=== PATIENT | female | born 1965 | race Caucasian/White ===

== ENCOUNTER 2017-03-10 13:32 | Outpatient (CLI) | payer MEDICARE ==
--- NOTE | 2017-03-10 16:02 | RAD ---
CERVICAL SPINE: History: Cervical disc degeneration. Post op follow up. FINDINGS: Anterior fusion procedure noted. Anterior plate and screws transfix C5-6. Interbody implant is noted . There is mild wedging of the C6 vertebra. Posterior alignment is preserved. Plate and screws appea r adequate in position. IMPRESSION: Anterior fusion changes at C5-6. POS: [facility]
== END 2017-03-10 13:33 | disposition home or self-care (01) ==
LOC: TBSIIMAG 13:32
PROVIDERS: ATTEND Neurological Surgery
DX: M50.30 Other cervical disc degeneration, unspecified cervical region (principal); Z98.1 Arthrodesis status
CPT/HCPCS: 72040

== ENCOUNTER 2017-03-17 11:44 | Outpatient (CLI) | payer MEDICARE, MEDICAID ==
--- NOTE | 2017-03-17 16:43 | CT ---
CT THORAX NONCONTRAST: 03/17/2017 HISTORY: A 51-year-old female, follow-up right upper lobe lung nodule. COMPARISON: CT pulmonary angiogram of 01/22/2017. FINDINGS: Again noted is the solid, noncalcified nodule in the apical segment of the right upper lobe. Its ma rgins are irregular, but not spiculated. The peripheral superior aspect of this is hazy, with small ground-glass appearance. Because of indistinct boundaries, precise measurements are difficult to o btain, but it is approximately 15 x 10 x 15 mm. There are no other suspicious pulmonary nodules. N o airspace opacity, pulmonary edema, pleural effusion, or pneumothorax. No thoracic aortic aneurysm or cardiomegaly. Minimally prominent pretracheal lymph node at the level of the torres is unchange d. There is no destructive osseous lesion. The trachea and bronchi are patent and clear. There is no interval change overall. IMPRESSION: 1. No interval change in the approximately 15 mm pulmonary nodule in the apical segment of the right upper lobe, since approximately 1.5 months ago. 2. Primary lung cancer is a possibility. 3. Recommend PET scan. GREG Brandt POS: [facility]
--- NOTE | 2017-03-17 17:40 | CT ---
CT ABDOMEN WITH AND WITHOUT IV CONTRAST: 03/17/17 HISTORY: Liver hemangioma. FINDINGS: The patient is post cholecystectomy. No free air, free fluid or lymphadenopathy seen in the abdomen. The spleen, pancreas, right adrenal gland and kidneys appears normal. No calculi is seen in the kid neys or visualized portions of the ureters. No hydroureteronephrosis is noted. There is a 2 cm lesion in the dome of the liver which demonstrates peripheral nodular enhancement an d centripetal filling on subsequent imaging. This is consistent with a liver hemangioma. There is a 2 cm left adrenal nodule with attenuation values less than 10 Hounsfield units on the non contrasted images, consistent with a benign adenoma. There are vascular calcifications without evidence of aneurysmal dilatation of the abdominal aorta. No acute osseous abnormalities are seen. IMPRESSION: 1. Liver hemangioma. 2. Left adrenal adenoma. POS: [facility]
--- OUTSIDE RECORDS SUMMARY | 2017-03-18 19:27 | XMS | Clinical Summary ---
:1965 Author Organization [facility] Address [address] [place] [address] Phone Care Team Providers Name Role Phone , Primary Care Provider Unavailable Allergies Not on File Current Medications Not on file Active Problems Not on file Social History Tobacco Use Types Packs/Day Years Used Date Never Assessed Sex Assigned at Date Recorded Not on file Last Filed Vital Signs Not on file Plan of Treatment Not on file Results Not on filefrom Last 3 Months
== END 2017-03-17 11:45 | disposition home or self-care (01) ==
LOC: CT 11:44
PROVIDERS: ATTEND Internal Medicine
DX: D18.03 Hemangioma of intra-abdominal structures (principal); R91.1 Solitary pulmonary nodule; D35.02 Benign neoplasm of left adrenal gland
CPT/HCPCS: 71250; 74170

== ENCOUNTER 2017-03-23 11:35 | Outpatient (CLI) | payer MEDICARE, MEDICAID ==
--- NOTE | 2017-03-24 16:09 | PET ---
PET CT: 03/24/17 HISTORY: Pulmonary lung nodule. COMPARISON: 03/17/[address] RADIOPHARMACEUTICAL: 12.25 millicuries F18 FDG IV. FINDINGS: There is abnormal biodistribution of radiotracer with diffuse uptake throughout the musculature of t he imaged extremities as well as the body wall which precludes reliable evaluation for potential are as of hypermetabolic activity. Patient's known right apical pulmonary nodule is redemonstrated. There is activity present at this r egion with an SUV of less than 1, although this cannot be relied upon as an accurate degree of metab olic activity given the diffuse muscular uptake. There is also limitation for evaluation of potentia l sites of additional hypermetabolic uptake of the neck, chest, abdomen and pelvis. Subtle hypodensi ty at the hepatic dome related to patient's previously diagnosed hepatic hemangioma. Redemonstration of a left adrenal adenoma. Scattered vascular calcification present. There are cholecystectomy clip s seen. IMPRESSION: Nondiagnostic PET CT due to diffuse abnormal uptake of radiotracer within the regional musculature. SUV of less than 1 is obtained at the patient's known right apical pulmonary nodule, although this S UV cannot be relied upon as accurate due to the above described limitations. Recommend continued priti ging surveillance, which may be performed in a followup CT thorax in three to four months. POS: [facility]
== END 2017-03-23 11:36 | disposition home or self-care (01) ==
LOC: PET 11:35
PROVIDERS: ATTEND Internal Medicine Critical Care Medicine
DX: R91.1 Solitary pulmonary nodule (principal)
CPT/HCPCS: 78815; A9552

== ENCOUNTER 2017-08-12 08:48 | Outpatient (CLI) | payer MEDICARE, MEDICAID | END 2017-08-12 08:49 | disposition home or self-care (01) | LOC: BICCT 08:48 | PROVIDERS: ATTEND Internal Medicine Critical Care Medicine | DX: R91.1 Solitary pulmonary nodule (principal); R91.8 Other nonspecific abnormal finding of lung field; E27.8 Other specified disorders of adrenal gland | CPT/HCPCS: 71250 ==

== ENCOUNTER 2017-08-19 13:45 | Emergency (ER) | payer MEDICARE, OTHER ==
[~2017-08-19 13:45] MED LIST: ISOVUE-370 76%-LOCM 1 ML ONE
[2017-08-19] MEDS ORDERED: Ondansetron HCl/PF 4 MG/2 ML Vial ONE (14:54)
[2017-08-19] MEDS ORDERED: Famotidine/PF 20 mg/2ml Vial ONE (14:55)
[2017-08-19 14:56] LABS: #Basophils 0.1 thou/uL (0.0-0.2); #Eosinphils 0.3 thou/uL (0.0-0.7); #Monocytes 0.5 thou/uL (0.11-0.59); #Neutrophils 7.4 thou/uL (1.40-6.50); %Basophils 0.6 % (0.0-1.0); %Eosinophils 2.4 % (0.0-10.0); %Lymphocytes 26.5 % (21.0-51.0); %Monocytes 4.3 % (0.0-10.0); %Neutrophils 66.3 % (42.0-75.0); Hemoglobin 16.2 g/dL (12.0-16.0); Mean Corpuscular HGB CONC 33.6 g/dL (32.0-36.0); Mean Corpuscular Hemoglobin 31.3 pg (27.0-31.0); Mean Corpuscular Volume 93.4 fl (81.0-99.0); Mean Platelet Volume 7.5 fL (7.4-10.4); Platelet Count 272 thou/uL (130-400); RBC Distribution Width 13.4 % (11.5-14.5); Red Blood Cell (RBC) Count 5.17 mill/uL (4.20-5.40); White Blood Cell (WBC) Count 11.2 thou/uL (4.8-10.8)
--- NOTE | 2017-08-19 15:17 | CT ---
CT ABDOMEN AND PELVIS WITH IV CONTRAST: Date: 08/19/17 HISTORY: Nausea, diarrhea, dark bloody stool, and abdominal pain. FINDINGS: Comparison made with CT abdomen of 03/17/17. There are mild dependent changes in the lung bases. Hemangioma in the dome of the liver and 2.0 cm ad enoma in the left adrenal gland are stable. The spleen, pancreas, right adrenal gland, and kidneys ar e normal. No free air, free fluid, or lymphadenopathy noted in the abdomen or pelvis. The patient is post faisal cystectomy. There are vascular calcifications without evidence of aneurysmal dilatation of the abdomi nal aorta. The small bowel loops are not abnormally dilated. An abnormal appendix is not visualized. No pericolonic inflammatory changes are seen. There are mild degenerative changes in the lower lumbar spine. IMPRESSION: 1. Liver hemangioma. 2. Left adrenal adenoma. 3. No evidence of bowel obstruction or perforation. POS: [facility]
[2017-08-19 15:19] LABS: ALT (SGPT) 17 U/L (8-55); AST (SGOT) 17 U/L (5-34); Albumin 3.8 g/dL (3.5-5.0); Alkaline Phosphatase 138 U/L (40-150); Anion Gap 11 mmol/L (10-20); BUN (Urea Nitrogen) 16 mg/dL (9.8-20.1); Bilirubin, Total 0.2 mg/dL (0.2-1.2); Calc. Creatinine Clearance 0 mL/min (70-130); Carbon Dioxide 16 mmol/L (22-29); Chloride 111 mmol/L (98-107); Estimated GFR-MDRD 60; Globulin 2.9 g/dL (2.4-3.5); Glucose 136 mg/dL (70-105); Lipase 15 U/L (8-78); Potassium 3.3 mmol/L (3.5-5.1); Protein, Total 6.7 g/dL (6.0-8.3); Sodium 135 mmol/L (136-145)
[2017-08-19 15:38] LABS: Bilirubin Negative (Negative); Blood, Urine Negative (Negative); Clarity CLEAR (Clear); Glucose, Urine (Dipstick) Negative (Negative); Leukocyte Negative (Negative); Nitrite Negative (Negative); Protein, Urine (Dipstick) Negative (Neg-Trace); Specific Gravity, Urine 1.034 (1.002-1.036); Urobilinogen 0.2 mg/dL (0.2-1.0)
== END 2017-08-19 15:55 | disposition home or self-care (01) ==
LOC: ERS 13:45
DX: R11.2 Nausea with vomiting, unspecified (principal); R19.7 Diarrhea, unspecified; R10.9 Unspecified abdominal pain; K64.9 Unspecified hemorrhoids; E11.9 Type 2 diabetes mellitus without complications; G43.909 Migraine, unspecified, not intractable, without status migrainosus; E78.5 Hyperlipidemia, unspecified; I10 Essential (primary) hypertension; F41.9 Anxiety disorder, unspecified; F31.9 Bipolar disorder, unspecified; F17.210 Nicotine dependence, cigarettes, uncomplicated; Z86.73 Personal history of transient ischemic attack (TIA), and cerebral infarction without residual deficits
CPT/HCPCS: 74177; 80053; 81003; 82274; 83690; 85025; 96361; 96372; 96374; 96375; J2405; S0028

== ENCOUNTER 2017-11-29 14:30 | Outpatient (CLI) | payer MEDICARE, OTHER | END 2017-11-29 14:31 | disposition home or self-care (01) | LOC: BICMAMMO 14:30 | PROVIDERS: ATTEND Family Medicine | DX: Z12.31 Encounter for screening mammogram for malignant neoplasm of breast (principal) | CPT/HCPCS: 77063; 77067 ==

== ENCOUNTER 2017-12-02 09:08 | Outpatient (CLI) | payer MEDICARE, MEDICAID ==
--- NOTE | 2017-12-02 12:14 | RAD ---
BIPHASIC ESOPHAGRAM: HISTORY: Epigastric pain. FINDINGS: Swallowing is grossly normal. There is unobstructed flow of contrast through the esophagus into the stomach. Tertiary contractions are present. No obstructing mass, stricture, or diverticulum is seen . No GE reflux is demonstrated during the Valsalva maneuver. IMPRESSION: Presbyesophagus. POS: [facility]
== END 2017-12-02 09:09 | disposition home or self-care (01) ==
LOC: RAD 09:08
PROVIDERS: ATTEND Internal Medicine Gastroenterology
DX: R10.13 Epigastric pain (principal); K59.09 Other constipation; R07.9 Chest pain, unspecified; R91.1 Solitary pulmonary nodule; K22.8 Other specified diseases of esophagus
CPT/HCPCS: 74220

== ENCOUNTER 2017-12-07 13:02 | Outpatient (CLI) | payer MEDICARE, OTHER | END 2017-12-07 13:03 | disposition home or self-care (01) | LOC: BICMAMMO 13:02 | PROVIDERS: ATTEND Family Medicine | DX: N63.10 Unspecified lump in the right breast, unspecified quadrant (principal); N63.11 Unspecified lump in the right breast, upper outer quadrant | CPT/HCPCS: 76642; 77065; G0279 ==

== ENCOUNTER 2018-04-28 08:51 | Outpatient (CLI) | payer MEDICARE, MEDICAID ==
--- NOTE | 2018-04-28 10:37 | CT ---
NONCONTRAST ENHANCED CT CHEST: History: Follow up lung nodule. Technique: Noncontrast enhanced CT of the chest was performed. Date: 04-28-18 Comparison: 03-17-17 FINDINGS: Images demonstrate increasing right upper lobe lung parenchymal nodule. 3D measurements at this time measure 1.3 x 1.4 x 1.5 cm. Compared to previous measurement of 1.1 x 1.1 x 1.3 cm. This lesion appea rs to have more well circumscribed increasing density on the periphery compared to the previous exam. Overall size of the lesion has increased. It may be worthwhile to consider repeating the PET scan or consider repeat CT in 3 months to evaluate for interval change. The enlarged right upper lobe lesion is suspicious for possible malignancy. Left adrenal lesion is again seen and is stable. IMPRESSION: Lung RADS category 4B. POS: [facility]
== END 2018-04-28 08:52 | disposition home or self-care (01) ==
LOC: CT 08:51
PROVIDERS: ATTEND Internal Medicine Critical Care Medicine
DX: R91.1 Solitary pulmonary nodule (principal)
CPT/HCPCS: 71250

== ENCOUNTER 2018-09-06 14:47 | Outpatient (CLI) | payer MEDICARE, MEDICAID ==
--- NOTE | 2018-09-06 15:52 | MMO ---
Right Breast MAMMO Unilat Diag DDI RT+JULIA. CLINICAL HISTORY: Patient is 53 years old and is seen for diagnostic exam. The patient has no family history of breast cancer. The patient has no personal history of cancer. VIEWS: The views performed were: right craniocaudal with tomosynthesis; right mediolateral oblique with tomosynthesis; right mediolateral; and right exaggerated craniocaudal. FILMS COMPARED: The present examination has been compared to prior imaging studies performed at [facility] on 11/29/2017, 12/07/2017 and 09/06/2018. MAMMOGRAM FINDINGS: There are scattered fibroglandular densities. Finding 1: There are stable benign appearing calcifications seen in the right breast. Finding 2: There is a stable oval mass with circumscribed margins seen in the right breast at 9 o'clock. There are no suspicious masses, suspicious calcifications, or new areas of architectural distortion. IMPRESSION: THERE IS NO MAMMOGRAPHIC EVIDENCE OF MALIGNANCY. A ROUTINE FOLLOW-UP MAMMOGRAM IN 1 YEAR IS RECOMMENDED. THE RESULTS OF THIS EXAM WERE SENT TO THE PATIENT. ACR BI-RADS Category 2 - Benign finding MAMMOGRAPHY NOTE: 1. A negative mammogram report should not delay a biopsy if a dominant of clinically suspicious mass is present. 2. Approximately 10% to 15% of breast cancers are not detected by mammography. 3. Adenosis and dense breasts may obscure an underlying neoplasm.
--- NOTE | 2018-09-06 16:22 | ULT ---
RIGHT BREAST ULTRASOUND: 09/06/18 COMPARISON: None. HISTORY: Focal asymmetry in the outer aspect of the right breast at the 9 o'clock position from prior mammogra m and ultrasound. TECHNIQUE: Multiplanar loredo scale and color doppler images were obtained in a right breast ultrasound. FINDINGS: At the 9 o'clock position of the right breast approximately 6 cm from the nipple there is a 4 mm hyp oechoic region which may represent an intramammary lymph node. No suspicious shadowing is present. Th is is stable compared to prior examination. The lesion seen at the 10 o'clock position on the prior e xamination was not visualized on today's examination. IMPRESSION: BIRADS 2: Benign Finding(s) Routine annual screening mammography (for women over age 40). POS: [facility]
== END 2018-09-06 14:48 | disposition home or self-care (01) ==
LOC: BICMAMMO 14:47
PROVIDERS: ATTEND Family Medicine
DX: N63.10 Unspecified lump in the right breast, unspecified quadrant (principal)
CPT/HCPCS: 76642; 77065; G0279

== ENCOUNTER 2019-05-10 09:05 | Outpatient (CLI) | payer MEDICARE, MEDICAID ==
--- NOTE | 2019-05-10 13:18 | CT ---
CT THORAX WITHOUT IV CONTRAST: INDICATIONS: Follow up pulmonary nodule. COMPARISON: 03/17/2017 04/28/2018 FINDINGS: The single, partially solid nodule involving the right lung apex on image 22 of series 3 and image 38 of series 5 has intervally grown in size. The largest axial measurement seen was in the coronal plan e, measuring 19.65 mm x 16.32 mm, for an average axial 2D caliber measurement of 17.9 mm. Previously this nodule measured 14.9 x 13.35 mm with an average 2D caliber measurement of 14 mm. The partially s olid component seen within the central aspect of the nodule has increased in size, now measuring 8.9 x 8.1 mm with an average 2D caliber measurement of 8.53 mm. Small, subcentimeter nodules within the left upper lobe and right lower lobe are stable appearing. A small area of scarring within the left upper lobe on image 34 of series 3 is stable. Pleural parenchy mal scarring is stable appearing. There are coronary artery and thoracic aortic calcifications. There is a stable left adrenal adenoma. The gallbladder is surgically absent. There are areas of fatty inf iltration of the liver. There is scattered degenerative and osteoarthritic change. IMPRESSION: 1. Enlarging, partly solid nodule of the right lung apex. This is concerning for an enlarging invasiv e adenocarcinoma. The solid component within the central aspect of the lesion has increased in promin ence. Its position in the right lung apex would make percutaneous sampling very difficult. Recommend consideration for PET scan for further characterization. 2. Stable left adrenal adenoma. 3. Fatty infiltration of the liver. 4. Cholecystectomy. CODE T POS: [facility]
== END 2019-05-10 09:06 | disposition home or self-care (01) ==
LOC: BICCT 09:05
PROVIDERS: ATTEND Internal Medicine Critical Care Medicine
DX: R91.1 Solitary pulmonary nodule (principal); D35.02 Benign neoplasm of left adrenal gland; K76.0 Fatty (change of) liver, not elsewhere classified; Z90.49 Acquired absence of other specified parts of digestive tract
CPT/HCPCS: 71250

== ENCOUNTER 2019-09-13 09:14 | Outpatient (CLI) | payer MEDICARE, OTHER ==
--- NOTE | 2019-09-13 11:10 | MMO ---
Bilateral MAMMO Bilat Screen DDI+JULIA. CLINICAL HISTORY: Patient is 54 years old and is seen for screening. The patient has no family history of breast cancer. The patient has no personal history of cancer. VIEWS: The views performed were: bilateral craniocaudal with tomosynthesis and bilateral mediolateral oblique with tomosynthesis. FILMS COMPARED: The present examination has been compared to prior imaging studies performed at [facility] on 11/29/2017, 12/07/2017 and 09/06/2018. This study has been interpreted with the assistance of computer-aided detection. MAMMOGRAM FINDINGS: There are scattered fibroglandular densities. Finding 1: There are stable benign appearing calcifications seen in both breasts. Finding 2: There are stable masses with circumscribed margins seen in both breasts. Finding 3: There is a new round mass measuring 6 millimeters with circumscribed margins seen in the sub-areolar region of the left breast. IMPRESSION: FINDING 1: STABLE CALCIFICATIONS IN BOTH BREASTS ARE BENIGN. FINDING 2: STABLE MASSES IN BOTH BREASTS ARE BENIGN. FINDING 3: NEW MASS IN THE LEFT BREAST REQUIRES ADDITIONAL EVALUATION. AN ULTRASOUND EXAM IS RECOMMENDED. THE RESULTS OF THIS EXAM WERE SENT TO THE PATIENT. ACR BI-RADS Category 0 - Incomplete: Need additional imaging evaluation. [facility] will notify the patient of the need for additional imaging services. MAMMOGRAPHY NOTE: 1. A negative mammogram report should not delay a biopsy if a dominant of clinically suspicious mass is present. 2. Approximately 10% to 15% of breast cancers are not detected by mammography. 3. Adenosis and dense breasts may obscure an underlying neoplasm. Reported by: JOSUE TOLLIVER MD Electonically Signed: [id number]
== END 2019-09-13 09:15 | disposition home or self-care (01) ==
LOC: BICMAMMO 09:14
PROVIDERS: ATTEND Family Medicine
DX: Z12.31 Encounter for screening mammogram for malignant neoplasm of breast (principal); N63.10 Unspecified lump in the right breast, unspecified quadrant; N63.42 Unspecified lump in left breast, subareolar; R92.1 Mammographic calcification found on diagnostic imaging of breast
CPT/HCPCS: 77063; 77067

== ENCOUNTER 2019-09-19 13:04 | Outpatient (CLI) | payer MEDICARE, OTHER ==
--- NOTE | 2019-09-19 13:58 | ULT ---
LEFT BREAST ULTRASOUND: 09/19/19 HISTORY: Abnormal mammogram of 09/13/19. FINDINGS: Correlation is made with the mammograms of 09/13/19. Sonographic evaluation of the subareolar region of the left breast demonstrates dilated ducts with de bris measuring up to 4 mm. IMPRESSION: BIRADS 0: Incomplete: Need Additional Imaging Evaluation and/or Prior Mammograms for Comparison. Fur ther evaluation with bilateral breast MRI (with and without IV contrast).
== END 2019-09-19 13:05 | disposition home or self-care (01) ==
LOC: BICULT 13:04
PROVIDERS: ATTEND Family Medicine
DX: N63.20 Unspecified lump in the left breast, unspecified quadrant (principal)

== ENCOUNTER 2019-09-25 14:46 | Outpatient (CLI) | payer MEDICARE, OTHER ==
--- NOTE | 2019-09-25 17:47 | MRI ---
MRI OF THE BREASTS WITH AND WITHOUT CONTRAST: Comparison: Mammogram 09-13-2019; ultrasound 09-19-2019 History: Abnormality seen in the left breast on prior ultrasound. Technique: Multiplanar, multisequence MR images were obtained of the bilateral breasts without and wi th IV contrast. FINDINGS: Scattered fibroglandular breast tissue is seen. Minimal background parenchymal enhancement is seen. T here is a nonenhancing lesion demonstrating slight high T1 signal in the anterior aspect of the left breast measuring 5 mm in size. This corresponds to mammographic and ultrasound abnormality. No suspic ious enhancement is seen within either breast. No suspicious mass is seen in either breast. No axillary adenopathy. No internal mamillary lymph nodes are identified. IMPRESSION: There is a nonenhancing nodular lesion in the anterior aspect of the left breast. This likely represe nts an area of duct ectasia with focal truncation of the area of dilatation producing a rounded mass- like appearance. No suspicious mass is seen in either breast. BIRADS category 2 - benign findings. An nual screening mammography is recommended. POS: [facility]
== END 2019-09-25 14:47 | disposition home or self-care (01) ==
LOC: BICMRI 14:46
PROVIDERS: ATTEND Family Medicine
DX: N63.20 Unspecified lump in the left breast, unspecified quadrant (principal); N64.9 Disorder of breast, unspecified
CPT/HCPCS: 82565; C8908; A9577

== ENCOUNTER 2019-10-02 10:06 | Outpatient (CLI) | payer MEDICARE, OTHER ==
--- NOTE | 2019-10-02 11:23 | CT ---
CT CHEST WITHOUT CONTRAST CLINICAL INDICATION: Follow-up pulmonary nodule COMPARISON: Studies on 05/10/2019 and 04/28/2018 FINDINGS: Aorta: Normal in caliber. Likely changes contrast limits evaluation of the abdominal aorta. Lungs: Previously seen right apical pulmonary nodule is again identified and measures 2 cm cranial ca udal x1.4 cm AP x1.5 cm transverse with previous measurement of 2 cm craniocaudal x1.5 cm AP x1.5 cm transverse. This nodule has more of a solid appearance on the current examination. The irregular p ulmonary nodule medial aspect left upper lobe is again seen previously measuring approximately 9 mm with obtained measurement on today's examination of 8 mm and is not significantly changed in size. Ti ny 2 to 3 mm pulmonary nodules are also again seen in the left upper lobe which are unchanged in size. No additional discrete pulmonary nodule or mass is seen. Biapical pleural and parenchymal scarring is again seen. A few minimal nonspecific scattered groundglass densities are noted which could be attributable to volume loss. No pleural effusion is seen. Mediastinum: Lack of intravenous contrast limits evaluation, but no enlarged mediastinal lymph nodes are appreciated on this study. Vascular calcifications are seen in the coronary arteries. Thyroid gland: Grossly normal nonenhanced CT appearance Osseous structures: No suspicious lytic or sclerotic osseous lesions are identified. Postoperative ch anges lower cervical spine are partially visualized. Chest wall: No abnormality is visualized. Upper abdomen: Liver demonstrates diminished attenuation likely attributable to diffuse fatty infiltr ation. Postcholecystectomy changes are again seen. Left adrenal nodule is again seen stable in size and demonstrating attenuation coefficient again most compatible with an adrenal adenoma. IMPRESSION: 1. Right apical pulmonary nodule. This nodule has a more overall solid appearance on today's exam. Fi ndings are again worrisome for malignancy. 2. Subcentimeter stable left upper lobe pulmonary nodules. 3. Stable left adrenal adenoma. 4. Fatty infiltration liver. 5. Cholecystectomy.
== END 2019-10-02 10:07 | disposition home or self-care (01) ==
LOC: BICCT 10:06
PROVIDERS: ATTEND Internal Medicine Critical Care Medicine
DX: R91.8 Other nonspecific abnormal finding of lung field (principal); K76.0 Fatty (change of) liver, not elsewhere classified; D35.02 Benign neoplasm of left adrenal gland; Z90.49 Acquired absence of other specified parts of digestive tract
CPT/HCPCS: 71250

== ENCOUNTER 2019-10-13 08:51 | Outpatient (CLI) | payer MEDICARE, MEDICAID ==
--- NOTE | 2019-10-13 12:00 | PET ---
Nuclear medicine FDG PET/CT: (Positron emission tomography and computed tomography) DATE: 10/13/2019 HISTORY: 54-year-old female with pulmonary nodule ICD-10: R 91.1 COMPARISON: 03/23/2017 TECHNIQUE: IV injection of F-18 fluorodeoxyglucose (FDG) dose: 11.3 mCi. PET scan and attenuation correction CT performed from skull base to proximal thighs. FINDINGS: SUV (standard uptake values) numbers given are maximum SUVs. QCLR used. There is increased FDG uptake throughout soft tissues of entire body, suggesting poor serum glucose c ontrol, making this a somewhat suboptimal study, although not as bad as the previous PET scan. The noncalcified pulmonary nodule in the apical segment of the right upper lobe was given dimensions of 2 x 1.4 x 1.5 cm on the chest CT report of 10/02/2019. It has grown since 03/23/2017, when it was approximately 1 x 0.7 cm. The current SUV is 1.5. There are mild diffuse hazy nonspecific groundglass changes in the bilateral mid and lower lung zones , similar to the attenuation correction CT images of the previous PET of 03/23/2017. On the 03/23/[address] images of that prior PET scan, there was asymmetrically g reater right-sided breast tissue than the left. This right-sided breast tissue has become larger in volume. Difficult to obtain measurements because of very irregular shape. It has SUV of 2.2 currently . There is a new finding of diffusely heterogeneously increased FDG uptake throughout the liver, with S UV up to 2.5. The attenuation correction CT demonstrates hepatomegaly and fatty liver. Cholecystectomy clips. The left adrenal adenoma is unchanged since 03/23/2017, with SUV of 1.4. There is patchy diffusely significantly increased uptake scattered throughout bowel, especially colon . No FDG avid enlarged lymphadenopathy of the identified in neck, chest, abdomen, or pelvis. IMPRESSION: 1) although the right apical upper lobe pulmonary nodule is not FDG avid, it is still possible that t his could be a low-grade primary pulmonary adenocarcinoma, based on its appearance. 2) hepatomegaly and hepatic steatosis. 3) diffusely heterogeneously patchy regions of increased uptake scattered throughout the liver. This may be due to heterogeneous fatty infiltration. However, a multiphase CT of abdomen with and without contrast, hepatic mass protocol is still recommended to rule out the somewhat low possibility of diffuse hepatic metastatic disease. If there is contraindication to iodinated contrast, MRI of the liver with and without contrast is recommended. 4) nonspecific mildly increased uptake in the right breast. Recommend following the recommendation on the report of the most recent mammogram. 5) benign left adrenal adenoma.
== END 2019-10-13 08:52 | disposition home or self-care (01) ==
LOC: PET 08:51
PROVIDERS: ATTEND Internal Medicine Critical Care Medicine
DX: R91.1 Solitary pulmonary nodule (principal); R94.8 Abnormal results of function studies of other organs and systems; D35.02 Benign neoplasm of left adrenal gland; K76.0 Fatty (change of) liver, not elsewhere classified
CPT/HCPCS: 78815; A9552

== ENCOUNTER 2019-10-31 08:27 | Day surgery (SDC) | payer MEDICARE, MEDICAID ==
[2019-10-30 14:38] VITALS: BMI 32.9
[2019-10-31 08:59] LABS: #Basophils 0.1 thou/uL (0.0-0.2); #Eosinphils 0.3 thou/uL (0.0-0.7); #Lymphocytes 3.7 thou/uL (1.20-3.40); #Monocytes 0.9 thou/uL (0.11-0.59); #Neutrophils 4.7 thou/uL (1.40-6.50); %Basophils 0.6 % (0.0-1.0); %Eosinophils 3.4 % (0.0-10.0); %Monocytes 9.6 % (0.0-10.0); %Neutrophils 48.3 % (42.0-75.0); Hemoglobin 14.4 g/dL (12.0-16.0); INR-International Normal Ratio 0.9; Mean Corpuscular HGB CONC 31.6 g/dL (32.0-36.0); Mean Corpuscular Hemoglobin 29.8 pg (27.0-31.0); Mean Platelet Volume 8.4 fL (7.4-10.4); PTT 32.5 sec (22.9-36.1); Platelet Count 278 thou/uL (130-400); RBC Distribution Width 13.5 % (11.5-14.5); Red Blood Cell (RBC) Count 4.85 mill/uL (4.20-5.40); White Blood Cell (WBC) Count 9.6 thou/uL (4.8-10.8)
[2019-10-31 09:34] VITALS: BP 121/80; TEMP 96.5
[2019-10-31] MEDS ORDERED: Benzonatate 100 MG CAP ONE (09:35)
[2019-10-31] MEDS ORDERED: Sodium Bicarbonate 2.5 MEQ/5 ML VIAL ONE (09:35)
[2019-10-31] MEDS ORDERED: Midazolam HCl 2 mg/2 ml Vial ONE (09:36)
[2019-10-31] MEDS ORDERED: Fentanyl 100 MCG/2 ML VIAL ONE (09:36)
[2019-10-31] MEDS ORDERED: HYDROcodone/Acetaminophen 5/325 mg Tablet ONE ×2 (11:46→13:54)
--- NOTE | 2019-10-31 11:57 | RAD ---
Chest 2 views and spectral expiratory HISTORY: Right lung mass with biopsy FINDINGS: Cardiac silhouette and pulmonary vasculature are unremarkable. Mediastinum is midline. Post operative changes cervical spine. Subtle mass at the lateral aspect of the right apex as visualized. Tiny amount of pleural gas just ab ove the level of the mass, at the right apex. Old left rib fractures. IMPRESSION : Tiny right apical post biopsy pneumothorax. Patient will be monitored in holding area and follow-up e xam performed.
[2019-10-31] MEDS ORDERED: Acetaminophen 500 MG TAB ONE (13:54)
--- NOTE | 2019-10-31 14:19 | CT ---
CT-guided biopsy right lung mass Conscious sedation: At least 1 hour spent with the patient for conscious sedation HISTORY: Right lung mass. FINDINGS: After explaining the procedure and answering all questions, limited CT imaging of the chest was performed. Sterile technique, buffered local anesthesia, CT guidance, conscious sedation, and an anterior approach were used to carefully advance a 19-gauge trocar needle into the spiculated mass at the right lung apex. Position was confirmed with CT. A total of 4 20-gauge core biopsy specimens were obtained and eventua lly submitted to pathology for evaluation. Needle was removed. No evidence of pneumothorax at this time. Patient tolerated the procedure well and was transferred to [facility] area in good condition for further monitoring. Patient did experience some discomfort of the right shoulder and back over the next 2 hours that impr [place] significantly after pain medication and eating. Limited CT imaging of the upper chest was performed at 1341 hours, revealing minimal residual pneumothorax and no evidence of complication. Pat ient will be discharged. IMPRESSION : Technically successful CT-guided biopsy right upper lobe lung mass. Pathology is pending.
--- NOTE | 2019-10-31 16:04 | RAD ---
INSPIRATORY AND EXPIRATORY VIEWS OF THE CHEST: 10/31/19 INDICATIONS: Status post right lung biopsy. COMPARISON: Prior inspiratory/expiratory views of the chest dated 10/31/19 at 11:14 a.m. IMPRESSION: Small right apical pneumothorax is slightly larger. The remainder of the examination is stable appear ing. COMMENTS: Left lung is clear. Heart size is normal appearing. There is an ACDF plate involving the lower cervic al spine. Thoracolumbar scoliosis is similar appearing. POS: [facility]
--- NOTE | 2019-11-01 15:05 | CT ---
CT-guided biopsy right lung mass Conscious sedation: At least 1 hour spent with the patient for conscious sedation HISTORY: Right lung mass. FINDINGS: After explaining the procedure and answering all questions, limited CT imaging of the chest was performed. Sterile technique, buffered local anesthesia, CT guidance, conscious sedation, and an anterior approach were used to carefully advance a 19-gauge trocar needle into the spiculated mass at the right lung apex. Position was confirmed with CT. A total of 4 20-gauge core biopsy specimens were obtained and eventua lly submitted to pathology for evaluation. Needle was removed. No evidence of pneumothorax at this time. Patient tolerated the procedure well and was transferred to [facility] area in good condition for further monitoring. Patient did experience some discomfort of the right shoulder and back over the next 2 hours that impr [place] significantly after pain medication and eating. Limited CT imaging of the upper chest was performed at 1341 hours, revealing minimal residual pneumothorax and no evidence of complication. Pat ient will be discharged. IMPRESSION : Technically successful CT-guided biopsy right upper lobe lung mass. Pathology is pending. Transcribed Date/Time: 11/01/2019 3:04 PM
== END 2019-10-31 14:15 | disposition home or self-care (01) ==
LOC: RAD 08:27
PROVIDERS: ATTEND Internal Medicine Critical Care Medicine
PROC: 0BBC3ZX Excision of Right Upper Lung Lobe, Percutaneous Approach, Diagnostic (ICD-10-PCS; principal; 2019-10-31)
DX: C34.11 Malignant neoplasm of upper lobe, right bronchus or lung (principal); I10 Essential (primary) hypertension; F41.9 Anxiety disorder, unspecified; F31.9 Bipolar disorder, unspecified; F17.200 Nicotine dependence, unspecified, uncomplicated; E78.5 Hyperlipidemia, unspecified; K21.9 Gastro-esophageal reflux disease without esophagitis; Z79.82 Long term (current) use of aspirin; Z79.83 Long term (current) use of bisphosphonates; Z79.84 Long term (current) use of oral hypoglycemic drugs; Z79.899 Other long term (current) drug therapy; Z88.0 Allergy status to penicillin; Z91.040 Latex allergy status
CPT/HCPCS: 32405; 36415; 71045; 77012; 85025; 85610; 85730; 88305; 88313; 88341; 88342; J2250; J3010

== ENCOUNTER 2019-11-15 12:29 | Observation (INO) | payer MEDICARE, OTHER ==
[2019-11-15 13:00] LABS: #Basophils 0.1 thou/uL (0.0-0.2); #Eosinphils 0.1 thou/uL (0.0-0.7); #Monocytes 0.6 thou/uL (0.11-0.59); #Neutrophils 6.1 thou/uL (1.40-6.50); %Basophils 0.8 % (0.0-1.0); %Lymphocytes 30.6 % (21.0-51.0); %Monocytes 5.8 % (0.0-10.0); %Neutrophils 61.7 % (42.0-75.0); Hemoglobin 15.3 g/dL (12.0-16.0); Mean Corpuscular Hemoglobin 30.4 pg (27.0-31.0); Mean Corpuscular Volume 92.3 fL (78.0-98.0); Mean Platelet Volume 7.9 fL (7.4-10.4); Platelet Count 320 thou/uL (130-400); RBC Distribution Width 12.6 % (11.5-14.5); Red Blood Cell (RBC) Count 5.03 mill/uL (4.20-5.40); White Blood Cell (WBC) Count 9.9 thou/uL (4.8-10.8)
--- NOTE | 2019-11-15 13:01 | CT ---
CT BRAIN WITHOUT CONTRAST: HISTORY: Left-sided weakness and blurred vision on the left side. Level 1 stroke. Altered mental stat us COMPARISON: 12/21/2013 FINDINGS: No evidence of acute infarct, hemorrhage, midline shift or abnormal extra-axial fluid collections is seen. The ventricular size is appropriate and the basilar cisterns are patent. The bony calvarium is intact. The visualized paranasal sinuses and mastoid air cells are well aerated. IMPRESSION: No CT evidence of acute intracranial process. Discussed over the telephone with ER physician Dr. Rivera at 12:58 PM
[2019-11-15 13:07] LABS: BHCG - Serum Negative (NEGATIVE); Pregs Control Background? CLEAR/WHITE (CLR/WHITE); Pregs Control Bar Appear? YES (CONTROL BAR)
[2019-11-15 13:10] LABS: PTT 31.8 sec (22.9-36.1); Prothrombin Time 12.6 sec (12.0-14.7)
[2019-11-15 13:24] LABS: ALT (SGPT) 60 U/L (8-55); AST (SGOT) 42 U/L (5-34); Albumin 4.1 g/dL (3.5-5.0); Alkaline Phosphatase 133 U/L (40-110); Anion Gap 14 mmol/L (10-20); BUN (Urea Nitrogen) 10 mg/dL (9.8-20.1); Bilirubin, Total 0.2 mg/dL (0.2-1.2); Calc. Creatinine Clearance 0 mL/min (70-130); Calcium 8.9 mg/dL (7.8-10.44); Carbon Dioxide 24 mmol/L (22-29); Chloride 104 mmol/L (98-107); Estimated GFR-MDRD 48; Globulin 2.9 g/dL (2.4-3.5); Glucose 127 mg/dL (70-105); Lipase 13 U/L (8-78); Potassium 4.1 mmol/L (3.5-5.1); Sodium 138 mmol/L (136-145)
[2019-11-15 13:26] LABS: Acetaminophen Less than 6.0 mcg/mL (10.0-30.0); Alcohol Less than 10 mg/dL (Less than 10); Salicylate Less than 8.0 mg/dL (15.0-30.0)
[2019-11-15 13:44] LABS: Bilirubin Negative (Negative); Blood, Urine Negative (Negative); Clarity Clear (Clear); Glucose, Urine (Dipstick) Normal (Negative); Ketone, Urine Negative (Negative); Leukocyte Negative Leu/uL (Negative); Nitrite Negative (Negative); Protein, Urine (Dipstick) Negative (Neg-Trace); Specific Gravity, Urine 1.025 (1.002-1.036); Urobilinogen Normal mg/dL (Less than 2)
[2019-11-15 13:56] LABS: Amphetamine Detected (NotDetected); Barbiturates Screen Not Detected (NotDetected); Benzodiazepine Screen Not Detected (NotDetected); Cocaine Metabolite Screen Not Detected (NotDetected); Medtox Control Line Valid? VALID (VALID); Medtox Reader # READER 1; Methadone Not Detected (NotDetected); Methamphetamine Not Detected (NotDetected); Opiate Screen Not Detected (NotDetected); Oxycodone Screen Not Detected (NotDetected); Phencyclidine (PCP) Not Detected (NotDetected); THC/Cannabinoid Screen Not Detected (NotDetected); Tricyclic Screen Detected (NotDetected)
--- NOTE | 2019-11-15 13:57 | CT ---
CTA HEAD WITH IV CONTRAST AND 3D POSTPROCESSING: CTA NECK WITH IV CONTRAST AND 3D POSTPROCESSIN11/15/19 HISTORY: Level I stroke. Left side weakness and blurred vision on the left side. FINDINGS: There is good flow in the vertebrobasilar and carotid artery systems bilaterally without significant stenosis, major branch occlusion or aneurysm formation. The intracranial cavernous portions of the ca rotid arteries are bilaterally symmetric. Incidental note of symmetric prominence of the ophthalmic veins bilaterally which was also seen on e MRI of 04/24/16. There are postop changes of anterior spinal fusion with plate and screws at C5-6 level in good positi on and alignment. No mass or lymphadenopathy seen in the neck. The airway is patent. Upper chest images demonstrate a stable 2 cm right upper lobe lung nodule noted on CT chest 09/22/19. IMPRESSION: 1. Normal CTA of the head and neck. 2. Prominent but bilaterally symmetric ophthalmic veins. 3. This exam is interpreted in consultation with Drs. Melody Toro and Lit Go who concur . Discussed over the telephone with ER physician Dr. Yuniel Rivera at 1:18 p.m. POS: [facility]
[2019-11-15] MEDS ORDERED: Midazolam HCl 2 mg/2 ml Vial ONE (14:28)
--- NOTE | 2019-11-15 15:41 | PDOC.FPRHP ---
- History of Present Illness Chief Complaint: AMS History of Present Illness: 54yo female presents with daughter for AMS. Around 1200 called her daughter with slurred speech and said she was not feeling well. Brought to ED by EMS. Daughter reports she has had difficulty walking. Changes wax and wane. Symptoms started suddenly. 15yrs ago had similar thing happen. Reports she is under a lot stress recently and at that time. Symptoms spontaneously resolved at that time. Started seeing a psychologist and continued to have improvement. ED Course: Midazolam 1mg, 1L NS - Allergies/Adverse Reactions Allergies Allergy/AdvReac Type Severity Reaction Status Date / Time latex Allergy Verified 10/30/19 13:21 Penicillins Allergy Verified 10/30/19 13:21 - Home Medications Medication Instructions Recorded Confirmed Type Aspirin [Ecotrin Low Strength] 81 mg PO DAILY 12/21/13 11/15/19 History Atorvastatin Calcium [Lipitor] 20 mg PO DAILY 12/21/13 11/15/19 History Nitroglycerin [Nitrostat] 0.4 mg SL Q5MIN PRN 12/21/13 11/15/19 History Propranolol HCl [Inderal LA] 120 mg PO DAILY 12/21/13 11/15/19 History Zolpidem Tartrate [Ambien] 10 mg PO HS PRN 12/21/13 11/15/19 History Furosemide [Lasix] 20 mg PO DAILY 12/31/16 11/15/19 History Nortriptyline HCl [Pamelor] 25 mg PO DAILY 12/31/16 11/15/19 History OXcarbazepine [Trileptal] 600 mg PO DAILY 12/31/16 11/15/19 History Potassium Chloride [Klor-Con] 20 meq PO DAILY 12/31/16 11/15/19 History clonazePAM [Klonopin] 0.5 mg PO TID 12/31/16 11/15/19 History Hydrocortisone 1% Cream 1 applic TOP QID #1 tube 01/23/17 11/15/19 Rx diphenhydrAMINE [Benadryl 2% Cream] 1 gm TOP QID PRN #1 tube 01/23/17 11/15/19 Rx Alendronate Sodium [Fosamax] 70 mg PO Q7D 10/30/19 11/15/19 History Calcium Carbonate/Vitamin D3 1 tablet PO DAILY 10/30/19 11/15/19 History [Calcium 600 + Vitamin D] Cholecalciferol (Vitamin D3) 1,000 unit PO DAILY 10/30/19 11/15/19 History [Vitamin D3] Dextroamphetamine/Amphetamine 20 mg PO BID 10/30/19 11/15/19 History [Adderall 20 mg Tablet] Doxepin HCl 10 mg PO TID 10/30/19 11/15/19 History Esomeprazole Magnesium 40 mg PO HS 10/30/19 11/15/19 History Gabapentin [Neurontin] 300 mg PO BID 10/30/19 11/15/19 History Icosapent Ethyl [Vascepa] 4 gm PO HS 10/30/19 11/15/19 History Melatonin 5 mg PO HS 10/30/19 11/15/19 History Montelukast Sodium [Singulair] 10 mg PO BID 10/30/19 11/15/19 History Multivitamin/Iron/Folic Acid 1 tablet PO DAILY 10/30/19 11/15/19 History [Sentry] SUMAtriptan Succinate [Imitrex] 100 mg PO Q2HR PRN 10/30/19 11/15/19 History Sitrogy 4 mg PO BID 10/30/19 11/15/19 History Topiramate [Topamax] 50 mg PO BID 10/30/19 11/15/19 History Vitamin B Complex 1 tab PO DAILY 10/30/19 11/15/19 History metFORMIN [Glucophage] 500 mg PO QPM-WM 10/30/19 11/15/19 History - History PMHx: Lung Cancer (adenocarcinoma), dx 2 wks ago. Bipolar. HTN, Anxiety. Prediabetes. SVT. GERD, Migraines, ADHD, PSHx: Hysterectomy FHx: Mother - kidney cancer, CAD Social: Former smoker- quit 10 days ago. 1ppd. Denies drug or alcohol use. - Review of Systems General: denies: fever/chills, fatigue Eyes: reports: other (blurry vision). denies: eye pain ENT: denies: nasal congestion, rhinorrhea Respiratory: denies: cough, congestion, shortness of breath Cardiovascular: denies: chest pain, edema Gastrointestinal: reports: diarrhea. denies: nausea, vomiting Skin: denies: rashes, lesions Musculoskeletal: denies: pain Neurological: denies: numbness, weakness Psychological: reports: anxiety - Vital signs BP: 137/74 HR: 73 RR: 18 Tmax: 98.0 Pox: 100% on RA Wt: 82kg - Physical Exam Constitutional: NAD, awake, alert and oriented, well developed HEENT: normocephalic and atraumatic Neck: supple, trachea midline Heart: RRR, no murmurs/rubs/gallops Lungs: CTAB, no respiratory distress Abdomen: soft -Abdomen: distended with fluid wave Musculoskeletal: normal structure, normal tone Neurological: CN II-XII intact, normal sensation, DTRs 2+, other (Speech slurred. Anomic aphasia.) Skin: no rash/lesions, good turgor Heme/Lymphatic: no unusual bruising or bleeding Psychiatric: intact recent and remote memory FMR H&P: Results - Labs Result Diagrams: 11/15/19 12:47 11/15/19 12:47 Lab results: WBC 9.9 thou/uL (4.8-10.8) 11/15/19 12:47 Hgb 15.3 g/dL (12.0-16.0) 11/15/19 12:47 Hct 46.5 % (36.0-47.0) 11/15/19 12:47 MCV 92.3 fL (78.0-98.0) 11/15/19 12:47 Plt Count 320 thou/uL (130-400) 11/15/19 12:47 Neutrophils % 61.7 % (42.0-75.0) 11/15/19 12:47 Sodium 138 mmol/L (136-145) 11/15/19 12:47 Potassium 4.1 mmol/L (3.5-5.1) 11/15/19 12:47 Chloride 104 mmol/L (98-107) 11/15/19 12:47 Carbon Dioxide 24 mmol/L (22-29) 11/15/19 12:47 BUN 10 mg/dL (9.8-20.1) 11/15/19 12:47 Creatinine 1.17 mg/dL (0.6-1.1) H 11/15/19 12:47 Glucose 127 mg/dL (70-105) H 11/15/19 12:47 Calcium 8.9 mg/dL (7.8-10.44) 11/15/19 12:47 Total Bilirubin 0.2 mg/dL (0.2-1.2) 11/15/19 12:47 AST 42 U/L (5-34) H 11/15/19 12:47 ALT 60 U/L (8-55) H 11/15/19 12:47 Alkaline Phosphatase 133 U/L (40-110) H 11/15/19 12:47 Ammonia 31 umol/L (18-72) 11/15/19 12:47 Serum Total Protein 7.0 g/dL (6.0-8.3) 11/15/19 12:47 Albumin 4.1 g/dL (3.5-5.0) 11/15/19 12:47 Lipase 13 U/L (8-78) 11/15/19 12:47 Urine Ketones Negative mg/dL (Negative) 11/15/19 13:16 Urine Blood Negative (Negative) 11/15/19 13:16 Urine Nitrite Negative (Negative) 11/15/19 13:16 Ur Leukocyte Esterase Negative Flo/uL (Negative) 11/15/19 13:16 - Radiology Interpretation CT scan - head Status: report reviewed by me Additional comment: CT/CTA no acute abnormalities FMR H&P: A/P - Plan 54yo female admitted for acute encephalopathy Acute encephalopathy - Ddx: Metastasis to brain vs CVA vs psychogenic vs polypharmacy. Low suspicion for infectious cause. - CT/CTA wnl. MRI ordered to eval for mets/CVA - Ammonia, electrolytes wnl. Ordered RPR, B12 - Will review patients medications - Admit to medical obs Adenocarcinoma of lung - Recently diagnosed. Being worked up by Dr Baldwin HTN - Continue home meds ADHD - Hold home meds Bipolar/Anxiety - Continue home meds Code Status: FULL DVT ppx: SCDs PCP: NANCY (Dr Gonzales) Addendum - Attending - Attending Attestation Date/Time: 11/15/19 [id number] I personally evaluated the patient and discussed the management with Dr. Dee. I agree with the History, Examination, Assessment and Plan documented above with any addition or exceptions noted below.
[2019-11-15] MEDS ORDERED: Iopamidol-370 76% 500 ML 1 ML ONE (15:49)
[2019-11-15] MEDS ORDERED: Acetaminophen 325 MG TAB PO PRN (15:57)
[2019-11-15] MEDS ORDERED: Ondansetron ODT 4 MG TAB PO PRN (15:57)
[2019-11-15] MEDS ORDERED: Alendronate Sodium 70 mg Tablet PO SCH (16:30)
[2019-11-15] MEDS ORDERED: metFORMIN 500 MG TAB PO SCH (17:00)
[2019-11-15 17:25] LABS: Syphilis Antibody Nonreactive (Nonreactive); Syphilis Antibody Index 0.04 S/CO (<1.00 Non-Reactive)
[2019-11-15 18:35] VITALS: BMI 35.9
[2019-11-15] MEDS: Hydrocortisone 1% Cream 30 GM TUBE TOP SCH ×2 (19:04→21:31)
[2019-11-15] MEDS ORDERED: Icosapent Ethyl 1 GM CAPSULE PO SCH (21:00)
[2019-11-15] MEDS ORDERED: Melatonin 3 MG TAB PO SCH (21:00)
[2019-11-15] MEDS ORDERED: Atorvastatin Calcium 10 MG TAB PO SCH (21:00)
[2019-11-15] MEDS: Montelukast Sodium 10 mg Tablet PO SCH (21:08)
[2019-11-16 05:16] LABS: #Basophils 0.1 thou/uL (0.0-0.2); #Eosinphils 0.2 thou/uL (0.0-0.7); #Lymphocytes 2.5 thou/uL (1.20-3.40); #Monocytes 0.7 thou/uL (0.11-0.59); %Eosinophils 1.8 % (0.0-10.0); %Lymphocytes 29.3 % (21.0-51.0); %Neutrophils 59.8 % (42.0-75.0); Hemoglobin 13.7 g/dL (12.0-16.0); Mean Corpuscular HGB CONC 32.9 g/dL (32.0-36.0); Mean Corpuscular Hemoglobin 30.7 pg (27.0-31.0); Mean Corpuscular Volume 93.4 fL (78.0-98.0); Mean Platelet Volume 7.9 fL (7.4-10.4); Platelet Count 275 thou/uL (130-400); RBC Distribution Width 12.6 % (11.5-14.5); Red Blood Cell (RBC) Count 4.46 mill/uL (4.20-5.40); White Blood Cell (WBC) Count 8.4 thou/uL (4.8-10.8)
[2019-11-16 05:33] LABS: ALT (SGPT) 50 U/L (8-55); AST (SGOT) 35 U/L (5-34); Albumin 3.5 g/dL (3.5-5.0); Alkaline Phosphatase 117 U/L (40-110); Anion Gap 14 mmol/L (10-20); BUN (Urea Nitrogen) 10 mg/dL (9.8-20.1); Bilirubin, Total 0.3 mg/dL (0.2-1.2); Calc. Creatinine Clearance 98 mL/min (70-130); Calcium 8.4 mg/dL (7.8-10.44); Carbon Dioxide 23 mmol/L (22-29); Chloride 107 mmol/L (98-107); Estimated GFR-MDRD 64; Globulin 2.4 g/dL (2.4-3.5); Glucose 110 mg/dL (70-105); Potassium 3.6 mmol/L (3.5-5.1); Protein, Total 5.9 g/dL (6.0-8.3); Sodium 140 mmol/L (136-145)
--- NOTE | 2019-11-16 06:20 | PDOC.FM ---
- Subjective Subjective: Pt notes complete resolution of her symptoms this morning. Attributes her symptoms yesterday to a "nervous breakdown", which was very similar to an experience she had almost 18 years ago. Denies any inciting events that would lead to an exacerbation of anxiety. - Objective Vital Signs & Weight: Vital Signs (12 hours) Temp Pulse Resp BP Pulse Ox 11/16/19 04:00 98.7 F 72 16 91/54 L 97 11/15/19 23:55 97.7 F 65 18 109/67 95 11/15/19 20:00 97.7 F 71 18 121/80 97 Weight Weight 89.1 kg Result Diagrams: 11/16/19 04:56 11/16/19 04:56 Phys Exam - Physical Examination Constitutional: NAD HEENT: moist MMs, sclera anicteric Neck: full ROM Respiratory: no wheezing, no rales Cardiovascular: RRR Gastrointestinal: soft, non-tender Mild distention Musculoskeletal: no edema, pulses present Neurological: non-focal, normal sensation, moves all 4 limbs Psychiatric: normal affect, A&O x 3 Dx/Plan - Plan Plan: Acute encephalopathy - Resolved - Ddx: Metastasis to brain vs CVA/TIA vs psychogenic vs polypharmacy. Low suspicion for infectious cause. - CT/CTA wnl. MRI ordered to eval for mets/CVA - Ammonia, B12, RPR: WNL - Holding psychogenic home meds - Admit to medical obs Adenocarcinoma of lung - Recently diagnosed. Being worked up by Dr Baldwin HTN - Continue home meds ADHD - Hold home meds Bipolar/Anxiety - Continue home meds Code Status: FULL DVT ppx: SCDs Dispo: Inpatient stroke for work up of encephalopathic event. CTA and screening labs were negative. MRI ordered for today. If positive will order echo, neurology consult. If negative and pt continues resolution of sx will plan for DC later today. PCP: NANCY (Dr Gonzales) Addendum - Attending - Attending Attestation Date/Time: 11/16/19 1121 I personally evaluated the patient and discussed the management with Dr. Borrero. I agree with the History, Examination, Assessment and Plan documented above with any addition or exceptions noted below. Patient back to baseline. She had normal MRI. Stable for discharge. Suspect anxiety and polypharmacy as partial causes of her presentation.
[2019-11-16] MEDS ORDERED: Lorazepam 2 MG/ML VIAL SLOW IVP SCH (07:30)
[2019-11-16 07:41] VITALS: BP 110/59; TEMP 97.7
--- NOTE | 2019-11-16 07:41 | ULT ---
EXAM: US Abdominal CLINICAL HISTORY: Diarrhea. Abdominal pain and bloating.. COMPARISON: None. FINDINGS: Pancreas: The head and proximal pancreatic body have a normal echotexture. The remainder the pancrea s is obscured by bowel gas. IVC: Visualized IVC has a normal caliber. Aorta: Visualized aorta has a normal caliber. Liver:Increased echogenicity of the liver limits evaluation for hepatic masses and intrahepatic bilia ry dilatation. The contour of the hepatic margins maintained. Right hepatic lobe measures 19.0 cm. Gallbladder: Not appreciated. Correlation with previous CT demonstrates surgical clips in the gallbla dder fossa. Patel's sign:Not applicable CBD: 0.5 cm common bile duct diameter Portal vein: Not assessed Right kidney: Normal cortical echotexture. No hydronephrosis. Right kidney measuring 9.4 x 4.5 x 3.7 cm in length. Left kidney: Normal cortical echotexture. No hydronephrosis . Left kidney measuring 4.5 x 4.0 x 9.9 cm in length Spleen: Normal echotexture, measuring 10 cm IMPRESSION: 1. Heterogeneous attenuation liver due to hepatic steatosis or less likely hepatocellular disease. Th ere is fatty attenuation liver on a CT from 10/02/2019. 2. Surgically absent gallbladder. 3. No evidence of hydronephrosis.
[2019-11-16] MEDS ORDERED: OXcarbazepine 600 MG TAB PO SCH (09:00)
[2019-11-16] MEDS ORDERED: Cholecalciferol 1,000 UNITS (25 MCG) TAB PO SCH (09:00)
[2019-11-16] MEDS ORDERED: Aspirin 81 mg Enteric Coated Tablet PO SCH (09:00)
[2019-11-16] MEDS ORDERED: Calcium Carbonate 600 MG + Vit D TAB PO SCH (09:00)
[2019-11-16] MEDS ORDERED: Multivit, Therapeutic 1 TAB PO SCH (09:00)
[2019-11-16] MEDS ORDERED: Furosemide 20 MG TAB PO SCH (09:00)
[2019-11-16] MEDS ORDERED: OXcarbazepine 300 MG TAB PO SCH (09:00)
[2019-11-16] MEDS ORDERED: Stress 600 With Zinc 1 TAB PO SCH (09:00)
[2019-11-16] MEDS ORDERED: Propranolol 60 MG TAB PO SCH (09:00)
[2019-11-16] MEDS ORDERED: Propranolol 40 MG TAB PO SCH ×2 (09:45→21:00)
--- NOTE | 2019-11-16 09:45 | MRI ---
EXAM: MRI of the brain without and with contrast HISTORY: Left-sided weakness and left blurry vision COMPARISON: 04/24/2016 TECHNIQUE: Multiplanar multisequence MR images were obtained of the brain without and with IV contras t. FINDINGS: The brain demonstrates normal signal intensity on all obtained sequences. No restricted diffusion. No abnormal enhancement. No hydronephrosis. No extra-axial fluid collection or intracranial hemorrhage. The expected flow voids are present. Corpus callosum, pituitary, and craniocervical junction are within normal limits. The calvarium and overlying soft tissues are unremarkable. The paranasal sinuses and mastoid air cells are well aerated. IMPRESSION: No evidence of acute intracranial abnormality.
[2019-11-16] MEDS: Montelukast Sodium 10 mg Tablet PO SCH (10:16)
[2019-11-16] MEDS: Hydrocortisone 1% Cream 30 GM TUBE TOP SCH (10:16)
--- NOTE | 2019-11-16 12:57 | CT ---
CTA HEAD WITH IV CONTRAST AND 3D POSTPROCESSING: CTA NECK WITH IV CONTRAST AND 3D POSTPROCESSIN11/15/19 HISTORY: Level I stroke. Left side weakness and blurred vision on the left side. FINDINGS: There is good flow in the vertebrobasilar and carotid artery systems bilaterally without significant stenosis, major branch occlusion or aneurysm formation. The intracranial cavernous portions of the ca rotid arteries are bilaterally symmetric. Incidental note of symmetric prominence of the ophthalmic veins bilaterally which was also seen on e MRI of 04/24/16. There are postop changes of anterior spinal fusion with plate and screws at C5-6 level in good positi on and alignment. No mass or lymphadenopathy seen in the neck. The airway is patent. Upper chest images demonstrate a stable 2 cm right upper lobe lung nodule noted on CT chest 09/22/19. IMPRESSION: 1.Normal CTA of the head and neck. 2.Prominent but bilaterally symmetric ophthalmic veins. 3.This exam is interpreted in consultation with Drs. Melody Toro and Lit Go who concur. Discussed over the telephone with ER physician Dr. Yuniel Rivera at 1:18 p.m.
--- NOTE | 2019-11-16 20:57 | DIS ---
DATE OF ADMISSION: 11/15/2019 DATE OF DISCHARGE: 11/16/2019 ADMITTING ATTENDING: Jairon Cameron MD. DISCHARGE ATTENDING: Jairon Cameron MD. RESIDENT: Partha Borrero DO. CONSULTS: None. PROCEDURES: None. IMAGING: CT [place] [facility] [place] with contrast on 11/15/2019. Impression: Normal CTA of head and neck with prominent bilateral symmetric ophthalmic veins. Brain CT without contrast on 11/15/2019. Impression: No CT evidence of acute intracranial process. Brain MRI on 11/16/2019. Impression: No evidence of acute intracranial abnormality. Abdominal ultrasound on 11/16/2019. Impression: Heterogeneous attenuation of the liver due to hepatic steatosis or less likely hepatocellular disease. There is fatty attenuation on her CT from 10/02/2019. Surgically absent gallbladder. No evidence of hydronephrosis. PRIMARY DIAGNOSES: Possible transient ischemic attack versus probable psychogenic encephalopathy versus medication side effect. SECONDARY DIAGNOSIS: 1. Adenocarcinoma of the lung. 2. Hypertension. 3. Attention deficit hyperactivity disorder. 4. Bipolar anxiety. DISCHARGE MEDICATIONS: 1. Lipitor 20 mg daily. 2. Aspirin 81 mg daily. 3. Ambien 10 mg at bedtime. 4. Nitrostat 0.4 mg sublingual q.5h minutes p.r.n. 5. Propranolol extended release 120 mg daily. 6. Potassium chloride 20 mEq daily. 7. Nortriptyline 25 mg daily. 8. Trileptal 600 mg daily. 9. Furosemide 20 mg daily. 10. Clonazepam 0.5 mg p.o. t.i.d. 11. Vitamin B complex 1 daily. 12. Gabapentin 300 mg b.i.d. 13. Centrum multivitamin 1 tablet daily. 14. Montelukast 10 mg b.i.d. 15. Vascepa 4 g p.o. at bedtime. 16. Esomeprazole 40 mg at bedtime. 17. Vitamin D3 1000 units daily. 18. Adderall 20 mg b.i.d. 19. Sumatriptan 100 mg p.o. q.2 hours p.r.n. 20. Melatonin 5 mg at bedtime. 21. Metformin 500 mg q.p.m. 22. Doxepin 50 mg p.o. b.i.d. 23. Fosamax 70 mg p.o. q.7 days. 24. Topamax 50 mg b.i.d. 26. Pepcid 20 mg b.i.d. 27. Wellbutrin 150 mg 2 tabs daily. 28. Estradiol transdermal patch 0.025 topically q.7 days. 29. Famciclovir 250 mg b.i.d. HISTORY OF PRESENT ILLNESS AND HOSPITAL COURSE: A 54-year-old female presented via EMS with daughter with complaints of the patient developing slurred speech and difficulty walking earlier in the day. These changes waxed and waned since their onset. The patient noted that 15 years ago she had similar episode happen that she attributed to a psychological breakdown. Her symptoms spontaneously resolved at that time. The patient reports she is under a lot of stress currently. The patient was admitted to the hospital to the stroke floor for neurologic monitoring. She had a CTA head and neck and CT of the brain performed in the ER, which showed no acute findings. On exam, she was noted to have distention of her abdomen and mildly elevated transaminases, so an ultrasound of the abdomen was performed. This was consistent with hepatosteatosis, which was noted on previous CT scan of the abdomen 1 month ago. No nodules were noted. Of importance, the patient was recently diagnosed with adenocarcinoma of the lung, which is being followed by Dr. Baldwin. She has not received any radiation, chemo or surgery for this at this time. Screening labs including ammonia, electrolytes, RPR, and B12 were all within normal limits. Following day, the patient had an MRI, which showed no acute findings or signs of significant chronic ischemic vessel changes. Following day, the patient continued to have complete resolution in her presenting symptoms. I discussed with her the likelihood of this being a TIA versus psychogenic in nature. Recommended that the patient continue to follow up with her PCP for medication optimization. DISCHARGE INSTRUCTIONS: Location: Home. Diet: Heart healthy, diabetic. Activity: As tolerated. Followup: PCP Dr. Fito Gonzales within 7 days. Job ID: [id number] MTDD
== END 2019-11-16 11:43 | disposition home or self-care (01) ==
LOC: ERS 12:29 → 2SE 14:58
PROVIDERS: ADMIT Student in an Organized Health Care Education/Training Program; ATTEND Student in an Organized Health Care Education/Training Program
DX: G93.40 Encephalopathy, unspecified (principal); C34.90 Malignant neoplasm of unspecified part of unspecified bronchus or lung; I10 Essential (primary) hypertension; F90.9 Attention-deficit hyperactivity disorder, unspecified type; F31.9 Bipolar disorder, unspecified; F41.9 Anxiety disorder, unspecified; K21.9 Gastro-esophageal reflux disease without esophagitis; G43.909 Migraine, unspecified, not intractable, without status migrainosus; E11.9 Type 2 diabetes mellitus without complications; E78.5 Hyperlipidemia, unspecified; E78.00 Pure hypercholesterolemia, unspecified; Z87.891 Personal history of nicotine dependence; Z79.82 Long term (current) use of aspirin; Z79.83 Long term (current) use of bisphosphonates; Z79.84 Long term (current) use of oral hypoglycemic drugs; Z79.899 Other long term (current) drug therapy; Z88.0 Allergy status to penicillin; Z91.040 Latex allergy status
CPT/HCPCS: 70450; 70496; 70498; 70553; 80053; 80183; 80306; 80307; 81003; 82140; 82607; 82962 ×2; 83690; 83735; 84484; 84703; 85025; 85610; 85730; 86780; 87040; 87077; 87086; 93005; 93975; 96361; 96374; 96375; 97139 ×3; 99285; G0378 ×3; 36415; 36416; 84443; 87186; J2060; J2250; Q9967

== ENCOUNTER 2019-12-04 04:44 | Outpatient (CLI) | payer MEDICARE, MEDICAID, OTHER ==
[2019-12-04 14:27] LABS: Hemoglobin 15.6 g/dL (12.0-16.0); Mean Corpuscular HGB CONC 32.7 g/dL (32.0-36.0); Mean Corpuscular Hemoglobin 30.9 pg (27.0-31.0); Mean Corpuscular Volume 94.5 fL (78.0-98.0); Mean Platelet Volume 8.2 fL (7.4-10.4); Platelet Count 276 thou/uL (130-400); RBC Distribution Width 12.4 % (11.5-14.5); Red Blood Cell (RBC) Count 5.05 mill/uL (4.20-5.40); White Blood Cell (WBC) Count 10.2 thou/uL (4.8-10.8)
[2019-12-04 15:45] LABS: Anion Gap 13 mmol/L (10-20); BUN (Urea Nitrogen) 8 mg/dL (9.8-20.1); Calc. Creatinine Clearance 0 mL/min (70-130); Calcium 9.7 mg/dL (7.8-10.44); Carbon Dioxide 28 mmol/L (22-29); Chloride 104 mmol/L (98-107); Estimated GFR-MDRD 61; Glucose 159 mg/dL (70-105); Potassium 4.4 mmol/L (3.5-5.1); Sodium 141 mmol/L (136-145)
[2019-12-05 14:01] LABS: SARS-CoV-2 MS2 Positive; SARS-CoV-2 N Gene Negative; SARS-CoV-2 S Gene Negative; SARS-CoV-2 orf1ab Negative
== END 2019-12-04 04:45 | disposition home or self-care (01) ==
LOC: LABBT 04:44
PROVIDERS: ATTEND Thoracic Surgery (Cardiothoracic Vascular Surgery)
DX: Z01.818 Encounter for other preprocedural examination (principal); Z11.59 Encounter for screening for other viral diseases; R91.8 Other nonspecific abnormal finding of lung field
CPT/HCPCS: 80048; 85027; 93005; U0003; 87635; 93010

== ENCOUNTER 2019-12-04 10:30 | Inpatient (IN) | payer MEDICARE, MEDICAID ==
[2019-12-08] MEDS ORDERED: Fentanyl 100 MCG/2 ML VIAL ONE ×3 (06:40→12:10)
[2019-12-08] MEDS ORDERED: Midazolam HCl 2 mg/2 ml Vial ONE ×2 (06:40→07:15)
[2019-12-08] MEDS ORDERED: Lidocaine 1% PF 5 ML VIAL ONE (07:29)
[2019-12-08] MEDS ORDERED: Clindamycin/D5W 900 mg/50 ml Premix Bag ONE (07:45)
[2019-12-08] MEDS ORDERED: Levofloxacin 500 mg/D5W 100 ml Premix Bag ONE (07:45)
[2019-12-08] MEDS ORDERED: Fentanyl 250 MCG/5 ML VIAL ONE (07:55)
[2019-12-08] MEDS ORDERED: Acetaminophen 500 MG TAB PO PRN (07:57)
[2019-12-08] MEDS ORDERED: Ropivacaine 0.2% HCl/PF 20 ML ONE (07:59)
[2019-12-08] MEDS ORDERED: Naloxone HCl 0.4 mg/ml Vial IV PRN (08:00)
[2019-12-08] MEDS ORDERED: Naloxone HCl 0.4 mg/ml Vial IVP PRN (08:00)
[2019-12-08] MEDS ORDERED: Promethazine HCl 25 MG/ML VIAL IM PRN ×2 (08:00→13:16)
[2019-12-08] MEDS ORDERED: Hydrocerin (Eucerin) Cream 120 gm Jar TOP PRN (08:00)
[2019-12-08] MEDS ORDERED: Ondansetron PF 4 MG/2 ML Vial IVP PRN (08:00)
[2019-12-08] MEDS ORDERED: Promethazine HCl 25 MG SUPP PR PRN (08:00)
[2019-12-08] MEDS ORDERED: traMADol HCl 50 MG TAB PO PRN (08:00)
[2019-12-08] MEDS ORDERED: HYDROcodone/Acetaminophen 5/325 mg Tablet PO PRN ×3 (08:00→13:16)
[2019-12-08] MEDS ORDERED: fentaNYL Citrate/PF 500 MCG, Bupivacaine 10 ML in Sodium Chloride 0.9% 80 ML EPIDURAL SCH (08:00)
[2019-12-08] MEDS ORDERED: Ondansetron PF 4 MG/2 ML Vial ONE (11:09)
[2019-12-08] MEDS ORDERED: PHENYLEPHRINE-NS 100 MCG/ML 10 ML SYRINGE ONE (11:09)
[2019-12-08] MEDS ORDERED: PROPOFOL 200 MG/20 ML VIAL ONE (11:09)
[2019-12-08] MEDS ORDERED: Rocuronium Bromide 10 MG/ML (10ML VIAL) ONE (11:09)
[2019-12-08] MEDS ORDERED: Lidocaine 1.5% w/Epi 1:200K 30 ML VIAL (Epid Use) ONE (11:09)
[2019-12-08] MEDS ORDERED: Dexamethasone 20 MG/5 ML VIAL ONE (11:09)
[2019-12-08] MEDS: diphenhydrAMINE 50 MG/ML VIAL IM PRN ×2 (13:03→16:42)
[2019-12-08] MEDS: Ketorolac Tromethamine 30 MG/ML VIAL IVP SCH ×2 (13:05→18:05)
[2019-12-08] MEDS ORDERED: Dextrose 5% in Water 1,000 ML IV PRN (13:16)
[2019-12-08] MEDS ORDERED: Nitroglycerin 50 MG/250 ML BOT 250 ML IVPB PRN (13:16)
[2019-12-08] MEDS ORDERED: Dextrose 50% Abboject 50 ML SYRINGE SLOW IVP PRN (13:16)
[2019-12-08 13:52] VITALS: BMI 35.4
--- NOTE | 2019-12-08 14:01 | RAD ---
EXAM: CHEST ONE VIEW: 12/08/19 HISTORY: Postop right thoracotomy. FINDINGS: Two right chest tubes in place without significant pneumothorax. Increased opacity changes in the rig ht upper lobe particularly medially and possibly some postop partial atelectasis. Minimal linear and parenchymal change in the left base, evidence for some subsegmental atelectatic change. IMPRESSION: Minimal opacity changes in the right medial upper lobe with two chest tubes in place without signific ant pneumothorax. Horizontal linear and parenchymal changes in the left base probably subsegmental atelectasis. Continu ed short term follow-up. POS: [facility]
[2019-12-08] MEDS: Clindamycin/D5W 900 MG in Premix Bag 1 BAG IVPB SCH ×2 (16:42→20:15)
[2019-12-08] MEDS: Sodium Chloride 0.9% 1,000 ML IV SCH (18:49)
[2019-12-08] MEDS: Ondansetron PF 4 MG/2 ML Vial IVP PRN (20:13)
[2019-12-08] MEDS: diphenhydrAMINE 50 MG/ML VIAL IVP PRN (20:14)
[2019-12-08] MEDS: Atorvastatin Calcium 40 MG TAB PO SCH (21:31)
[2019-12-08] MEDS: HYDROcodone/Acetaminophen 5/325 mg Tablet PO PRN (21:32)
[2019-12-09] MEDS: diphenhydrAMINE 50 MG/ML VIAL IVP PRN ×2 (00:03→06:00)
[2019-12-09] MEDS: Ketorolac Tromethamine 30 MG/ML VIAL IVP SCH ×5 (00:03→23:59)
[2019-12-09] MEDS: Zolpidem Tartrate 5 MG TAB PO PRN (00:44)
[2019-12-09] MEDS: Clindamycin/D5W 900 MG in Premix Bag 1 BAG IVPB SCH ×2 (01:47→08:21)
[2019-12-09] MEDS: HYDROcodone/Acetaminophen 5/325 mg Tablet PO PRN ×4 (04:51→22:27)
--- NOTE | 2019-12-09 06:18 | OP ---
DATE OF PROCEDURE: 12/08/2019 PREOPERATIVE DIAGNOSIS: Adenocarcinoma of the right upper lobe. PROCEDURE PERFORMED: Right upper lobectomy. ANESTHESIA: General. ESTIMATED BLOOD LOSS: 200. DESCRIPTION OF PROCEDURE: After adequate anesthesia had been obtained and a double-lumen endotracheal tube placed, the patient was placed in the left lateral decubitus position. Right posterolateral muscle-sparing thoracotomy was performed after a 5-mm trocar and scope had been introduced to inspect the pleural space. Following this, the 5-mm trocar was exchanged for a 12-mm trocar to allow staplers to be used through this site. After opening the chest through the 5th intercostal space, the inferior pulmonary ligament was mobilized with the Bovie. The tumor was palpated in the upper lobe. Following this, individually arterial branches were stapled to the right upper lobe. Major fissure was incomplete and this was dissected out enough to visualize the pulmonary artery branches with the recurrent branch to the upper lobe being stapled. The fissure was then completed with several staple firings. The bronchus to the upper lobe was then clamped, and after ensuring good aeration to the middle and lower lobe, the right upper lobe bronchus was stapled with a green load. Following completion of this, the pulmonary vein branches x2 to the upper lobe were handled with a stapler and then the incomplete fissure between the upper and middle lobe was completed with multiple green load staple firings. Lymph nodes were then individually removed, following which the area was thoroughly inspected for bleeding. There was no air leak from the bronchial stump to 30 mm of pressure. Two chest tubes were then placed, following which the ribs were reapproximated with double-stranded catgut suture. Muscle layers, which had been mobilized, but not divided were placed in their anatomic position with Vicryl suture, and the subcutaneous tissue and skin were closed in layers. Job ID: [id number]
--- NOTE | 2019-12-09 07:36 | RAD ---
SINGLE VIEW CHEST: Date: 12/09/2019 COMPARISON: 12/08/2019. HISTORY: Status post thoracotomy. FINDINGS: Single view of the chest shows a normal sized cardiomediastinal silhouette. There are two right-sided chest tubes. Opacity seen in the right upper lobe, which may represent an infiltrate or a collapse. There may be a small apical pneumothorax on the right. No pleural effusion is seen. IMPRESSION: Right upper lobe collapse with possible small adjacent pneumothorax. POS: [facility]
[2019-12-09 07:46] LABS: #Basophils 0.1 thou/uL (0.0-0.2); #Eosinphils 0.1 thou/uL (0.0-0.7); #Lymphocytes 2.6 thou/uL (1.20-3.40); #Monocytes 0.9 thou/uL (0.11-0.59); #Neutrophils 7.5 thou/uL (1.40-6.50); %Basophils 0.5 % (0.0-1.0); %Eosinophils 0.8 % (0.0-10.0); %Lymphocytes 23.2 % (21.0-51.0); %Monocytes 8.4 % (0.0-10.0); %Neutrophils 67.1 % (42.0-75.0); Mean Corpuscular HGB CONC 32.2 g/dL (32.0-36.0); Mean Corpuscular Hemoglobin 30.5 pg (27.0-31.0); Mean Corpuscular Volume 94.7 fL (78.0-98.0); Mean Platelet Volume 8.4 fL (7.4-10.4); Platelet Count 201 thou/uL (130-400); RBC Distribution Width 12.5 % (11.5-14.5); Red Blood Cell (RBC) Count 4.26 mill/uL (4.20-5.40); White Blood Cell (WBC) Count 11.2 thou/uL (4.8-10.8)
[2019-12-09 07:56] LABS: Anion Gap 12 mmol/L (10-20); BUN (Urea Nitrogen) 18 mg/dL (9.8-20.1); Calc. Creatinine Clearance 81 mL/min (70-130); Calcium 7.3 mg/dL (7.8-10.44); Carbon Dioxide 18 mmol/L (22-29); Chloride 109 mmol/L (98-107); Estimated GFR-MDRD 53; Glucose 91 mg/dL (70-105); Potassium 3.9 mmol/L (3.5-5.1); Sodium 135 mmol/L (136-145)
[2019-12-09] MEDS: Enoxaparin Sodium 30 MG/0.3 ML SYRINGE SC SCH (10:07)
[2019-12-09] MEDS: Aspirin 81 mg Enteric Coated Tablet PO SCH (10:07)
[2019-12-09] MEDS: Doxepin HCl 25 MG CAP PO SCH ×2 (10:08→20:28)
[2019-12-09] MEDS: Sodium Chloride 0.9% 1,000 ML IV SCH (10:09)
[2019-12-09] MEDS: diphenhydrAMINE 25 MG CAP PO PRN ×2 (13:22→16:31)
[2019-12-09] MEDS: Bupivacaine 10 ML in Sodium Chloride 0.9% 90 ML EPIDURAL SCH (14:37)
[2019-12-09] MEDS: Fentanyl 100 MCG/2 ML VIAL SLOW IVP PRN ×3 (14:53→22:26)
--- NOTE | 2019-12-09 17:36 | CON ---
DATE OF CONSULTATION: HISTORY OF PRESENT ILLNESS: Amie Mullins is a 54-year-old female, status post upper lobe lobectomy for adenocarcinoma. She has a previous lung biopsy done on 10/31/2019, which did show presence of adenocarcinoma. She also underwent a PET scan in 09/2019. The PET scan showed mainly localized disease. PAST MEDICAL HISTORY: Pertinent for: 1. Tobacco abuse. 2. Bipolar. 3. Hypertension. 4. Anxiety. 5. Diabetes. 6. Reflux. 7. Migraine. 8. ADHD. PAST SURGICAL HISTORY: She has a previous hysterectomy. SOCIAL HISTORY: Pack-a-day smoker. HOME MEDICATIONS: Includes: 1. Nortriptyline 25. 2. Nicotine patch. 3. Gabapentin 300. 4. Klonopin 0.5. 5. Atarax 50. 6. Imitrex. 7. Metformin 500. 8. Lipitor 40. 9. B6. 10. Famvir. 11. Ambien. 12. Topamax 50. 13. Inderal 120. 14. Singulair 10. 15. Adderall 20. 16. Doxepin 50. 17. Calcium. 18. Fosamax. ALLERGIES: PENICILLIN. REVIEW OF SYSTEMS: Ten-point negative. PHYSICAL EXAMINATION: VITAL SIGNS: Blood pressure is 92/73, pulse rate of 80, saturating 100%. GENERAL: She is complaining of itching, but no shortness of breath. CHEST: No wheezing. No crackles. CARDIAC: Normal S1 and S2. No gallops. ABDOMEN: No masses. LABORATORY DATA: White count 11,000. Lytes are normal. Chest x-ray shows chest tube right-sided with right upper lung atelectatic changes. IMPRESSION: 1. Right upper lung atelectatic changes post upper lobe lobectomy. 2. Respiratory failure. 3. Chronic obstructive pulmonary disease. 4. Bipolar. 5. Attention deficit hyperactivity disorder. PLAN: Pulmonary calixto, continue aggressive neb treatment. PT and supportive care. We will follow in the ICU. TIME SPENT: Consultation note in 70 minutes, 50% in direct patient care. Job ID: [id number]
[2019-12-09] MEDS: Atorvastatin Calcium 40 MG TAB PO SCH (20:28)
[2019-12-10] MEDS: Zolpidem Tartrate 5 MG TAB PO PRN
[2019-12-10] MEDS: HYDROcodone/Acetaminophen 5/325 mg Tablet PO PRN ×2 (03:05→06:59)
[2019-12-10] MEDS: Bupivacaine 10 ML in Sodium Chloride 0.9% 90 ML EPIDURAL SCH (03:06)
[2019-12-10 04:31] LABS: #Eosinphils 0.2 thou/uL (0.0-0.7); #Lymphocytes 1.4 thou/uL (1.20-3.40); #Monocytes 0.7 thou/uL (0.11-0.59); #Neutrophils 7.3 thou/uL (1.40-6.50); %Basophils 0.5 % (0.0-1.0); %Monocytes 6.8 % (0.0-10.0); %Neutrophils 75.8 % (42.0-75.0); Hemoglobin 12.2 g/dL (12.0-16.0); Mean Corpuscular Hemoglobin 29.9 pg (27.0-31.0); Mean Corpuscular Volume 93.4 fL (78.0-98.0); Mean Platelet Volume 7.8 fL (7.4-10.4); Platelet Count 186 thou/uL (130-400); RBC Distribution Width 12.2 % (11.5-14.5); White Blood Cell (WBC) Count 9.6 thou/uL (4.8-10.8)
[2019-12-10 04:48] LABS: Anion Gap 11 mmol/L (10-20); BUN (Urea Nitrogen) 19 mg/dL (9.8-20.1); Calc. Creatinine Clearance 80 mL/min (70-130); Calcium 7.4 mg/dL (7.8-10.44); Carbon Dioxide 22 mmol/L (22-29); Chloride 107 mmol/L (98-107); Estimated GFR-MDRD 52; Glucose 143 mg/dL (70-105); Potassium 3.7 mmol/L (3.5-5.1); Sodium 136 mmol/L (136-145)
[2019-12-10] MEDS: Fentanyl 100 MCG/2 ML VIAL SLOW IVP PRN (05:50)
[2019-12-10] MEDS: Ketorolac Tromethamine 30 MG/ML VIAL IVP SCH (05:50)
[2019-12-10] MEDS: Insulin Regular 300 UNITS/3 ML VIAL SC PRN (06:58)
[2019-12-10] MEDS: Sodium Chloride 0.9% 1,000 ML IV SCH (07:00)
--- NOTE | 2019-12-10 08:46 | RAD ---
SINGLE VIEW CHEST: HISTORY: Status post thoracotomy. COMPARISON: 12/09/19 FINDINGS: A single view of the chest shows a normal sized cardiomediastinal silhouette. The right chest tube re ange. There is continuing opacification of the right thorax. No left-sided infiltrates are seen. IMPRESSION: Continued opacification of the right thorax. POS: [facility]
[2019-12-10] MEDS: Doxepin HCl 25 MG CAP PO SCH ×2 (09:27→21:55)
[2019-12-10] MEDS: Enoxaparin Sodium 30 MG/0.3 ML SYRINGE SC SCH (09:27)
[2019-12-10] MEDS: Polyethylene Glycol 3350 17 GM Packet PO SCH (09:28)
[2019-12-10] MEDS: Aspirin 81 mg Enteric Coated Tablet PO SCH (09:28)
[2019-12-10] MEDS: Morphine Sulfate 100 MG in Dextrose 5% in Water 98 ML IV SCH (10:22)
--- NOTE | 2019-12-10 11:09 | PRG ---
DATE OF SERVICE: 12/10/2019 SUBJECTIVE: This morning, she is complaining of pain and itching. Epidural was discontinued. She is being placed on a HYDRAULIC BILLET MAKER. X-ray still shows what appears to be right upper lung density infiltrate. She is coughing up some relatively clear sputum. She is status post upper lobe lobectomy. OBJECTIVE: VITAL SIGNS: Otherwise, maximum temperature is 98, pulse 89, blood pressure 105/69,respiratory rate 18, sats 98%. CHEST: Rhonchi. CARDIAC: Normal S1, S2. No gallops. ABDOMEN: No masses. LABORATORY DATA: Unremarkable. chronic obstructive pulmonary disease, tobacco abuse. I have added [place]era to her present neb treatments and empiric antibiotics. We will follow. Job ID: [id number]
[2019-12-10] MEDS: Atorvastatin Calcium 40 MG TAB PO SCH (21:54)
[2019-12-10] MEDS: Mometasone 200 MCG/Formoterol 5 MCG 120 PUFF INHALER INH SCH (23:15)
[2019-12-11] MEDS: Mometasone 200 MCG/Formoterol 5 MCG 120 PUFF INHALER INH SCH ×2 (06:34→18:31)
[2019-12-11] MEDS: Doxepin HCl 25 MG CAP PO SCH ×2 (09:31→20:42)
[2019-12-11] MEDS: Polyethylene Glycol 3350 17 GM Packet PO SCH (09:32)
[2019-12-11] MEDS: Enoxaparin Sodium 30 MG/0.3 ML SYRINGE SC SCH (09:32)
[2019-12-11] MEDS: Aspirin 81 mg Enteric Coated Tablet PO SCH (09:32)
--- NOTE | 2019-12-11 11:10 | PRG ---
DATE OF SERVICE: 12/11/2019 SUBJECTIVE: This morning, she is still complaining of significant chest pain. OBJECTIVE: VITAL SIGNS: Saturations are better at 96% on 2 L, , temperature 98, . CHEST: Decreased breath sounds. Bilateral rhonchi. CARDIAC: Normal S1, S2. No gallops. ABDOMEN: No masses. IMPRESSION: Upper lobe lobectomy, adenocarcinoma, awaiting final path, chronic obstructive pulmonary disease, possibly right middle lobe edema. PLAN: Continue aggressive PT, neb treatments, supportive care. We will follow. Awaiting results of the x-ray today. Job ID: [id number]
[2019-12-11] MEDS: Acetaminophen 500 MG TAB PO SCH ×3 (12:04→23:36)
[2019-12-11] MEDS: Insulin Regular 300 UNITS/3 ML VIAL SC PRN (12:04)
--- NOTE | 2019-12-11 13:54 | RAD ---
EXAM: Single view of the chest HISTORY: Status post thoracotomy COMPARISON: 12/10/2019 FINDINGS: Single view of the chest shows a normal sized cardiomediastinal silhouette. The right-side d chest tube is unchanged in position. There is slight improvement in the aeration the right thorax with persistent opacification in the right apex. The bones are unremarkable IMPRESSION: Slight improvement of right-sided aeration
[2019-12-11] MEDS: Morphine Sulfate 100 MG in Dextrose 5% in Water 98 ML IV SCH (16:16)
[2019-12-11] MEDS: Atorvastatin Calcium 40 MG TAB PO SCH (20:41)
[2019-12-12] MEDS: Ondansetron PF 4 MG/2 ML Vial IVP PRN (03:39)
[2019-12-12] MEDS: Acetaminophen 500 MG TAB PO SCH ×3 (05:20→17:30)
[2019-12-12] MEDS: Insulin Regular 300 UNITS/3 ML VIAL SC PRN (05:24)
[2019-12-12] MEDS: Mometasone 200 MCG/Formoterol 5 MCG 120 PUFF INHALER INH SCH ×2 (06:51→23:53)
[2019-12-12] MEDS: Metoprolol Tartrate 25 MG TAB PO SCH ×2 (08:28→20:22)
[2019-12-12] MEDS: metFORMIN 500 MG TAB PO SCH (08:28)
[2019-12-12] MEDS: Aspirin 81 mg Enteric Coated Tablet PO SCH (08:28)
[2019-12-12] MEDS: Enoxaparin Sodium 30 MG/0.3 ML SYRINGE SC SCH (08:29)
[2019-12-12] MEDS: Doxepin HCl 25 MG CAP PO SCH ×2 (08:29→20:22)
[2019-12-12] MEDS: Furosemide 20 MG TAB PO SCH (08:29)
[2019-12-12] MEDS: Polyethylene Glycol 3350 17 GM Packet PO SCH (08:30)
--- NOTE | 2019-12-12 08:50 | RAD ---
PORTABLE CHEST 1 VIEW: DATE: 12/12/2019. TIME: 7:51 AM. HISTORY: Status post thoracotomy. COMPARISON: Previous day. FINDINGS: Right-sided chest tube remains in place. Persistent opacity is seen in the right upper lung. No def inite pneumothorax is seen. The heart size is normal. The left lung is clear. IMPRESSION: Stable exam. POS: [facility]SHAWN
--- NOTE | 2019-12-12 12:20 | PRG ---
DATE OF SERVICE: 12/12/2019 SUBJECTIVE: Chest tube was removed today. Hopefully, her chest pain is going to get better. OBJECTIVE: VITAL SIGNS: Temperature 98, saturations 90% on room air, blood pressure 108/65, respirations 18, pulse 100. CHEST: Rhonchi, crackles. CARDIAC: Normal S1, S2. No gallops. ABDOMEN: No masses. DIAGNOSTIC DATA: X-ray still shows haziness in the right upper lung, status post lobectomy, adenocarcinoma. Her final path shows invasive adenocarcinoma, 1.5 cm. Influenza negative. PLAN: Continue supportive care, PT, outpatient oncology followup. Job ID: [id number]
[2019-12-12] MEDS: Morphine Sulfate 100 MG in Dextrose 5% in Water 98 ML IV SCH (18:22)
[2019-12-12] MEDS: Atorvastatin Calcium 40 MG TAB PO SCH (20:22)
[2019-12-13] MEDS: Zolpidem Tartrate 5 MG TAB PO PRN (00:09)
[2019-12-13] MEDS: Acetaminophen 500 MG TAB PO SCH ×4 (00:10→18:34)
[2019-12-13] MEDS: Mometasone 200 MCG/Formoterol 5 MCG 120 PUFF INHALER INH SCH (07:25)
[2019-12-13] MEDS: metFORMIN 500 MG TAB PO SCH (08:32)
[2019-12-13] MEDS: Polyethylene Glycol 3350 17 GM Packet PO SCH (08:32)
[2019-12-13] MEDS: Doxepin HCl 25 MG CAP PO SCH ×2 (08:32→20:20)
[2019-12-13] MEDS: Aspirin 81 mg Enteric Coated Tablet PO SCH (08:32)
[2019-12-13] MEDS: Metoprolol Tartrate 25 MG TAB PO SCH ×2 (08:32→20:20)
[2019-12-13] MEDS: Enoxaparin Sodium 30 MG/0.3 ML SYRINGE SC SCH (08:32)
[2019-12-13] MEDS: Furosemide 20 MG TAB PO SCH (08:32)
--- NOTE | 2019-12-13 11:13 | PRG ---
DATE OF SERVICE: 12/13/2019 SUBJECTIVE: This morning, she is awake and responsive. OBJECTIVE: VITAL SIGNS: Pulse 100, temperature 98, saturations 90% on room air, respiratory rate 16, blood pressure 131/76. GENERAL: Less pain. Less shortness of breath. CHEST: Rhonchi and crackles, right. Left lung is clear. CARDIAC: Normal S1 and S2. No gallops. ABDOMEN: No masses. ASSESSMENT: Status post lobectomy, adenocarcinoma, left lung haziness. PLAN: Continue PT. Hopefully, she can be discharged home in the next several days. She was started empirically on some antibiotics. Continue inhalers. Job ID: [id number]
--- NOTE | 2019-12-13 11:54 | RAD ---
EXAM: Chest PA and lateral: HISTORY: Status post thoracotomy COMPARISON: 12/12/2019 FINDINGS: Lines and tubes: Interval movable of right-sided chest tube. Heart: Normal cardiac silhouette Aorta: Unremarkable Pulmonary vessels: Normal Costophrenic angles: Small right-sided pleural effusion. Lungs: Persistent consolidation of the right upper lobe. Pneumothorax: No pneumothorax Osseous structures: No osseous abnormalities IMPRESSION: 1. Normal right-sided chest tube. No pneumothorax. 2. Persistent right upper lobe consolidation.
[2019-12-13] MEDS: Atorvastatin Calcium 40 MG TAB PO SCH (20:20)
[2019-12-14] MEDS: Mometasone 200 MCG/Formoterol 5 MCG 120 PUFF INHALER INH SCH ×2 (00:14→07:18)
[2019-12-14] MEDS: Acetaminophen 500 MG TAB PO SCH ×3 (00:26→11:54)
[2019-12-14] MEDS: traMADol HCl 50 MG TAB PO PRN ×2 (01:39→08:20)
[2019-12-14 07:50] VITALS: BP 100/66; TEMP 98
[2019-12-14] MEDS: metFORMIN 500 MG TAB PO SCH (08:23)
[2019-12-14] MEDS: Aspirin 81 mg Enteric Coated Tablet PO SCH (08:23)
[2019-12-14] MEDS: Doxepin HCl 25 MG CAP PO SCH (08:23)
[2019-12-14] MEDS: Furosemide 20 MG TAB PO SCH (08:23)
[2019-12-14] MEDS: Metoprolol Tartrate 25 MG TAB PO SCH (08:23)
[2019-12-14] MEDS: Polyethylene Glycol 3350 17 GM Packet PO SCH (08:23)
[2019-12-14] MEDS: Enoxaparin Sodium 30 MG/0.3 ML SYRINGE SC SCH (08:23)
[2019-12-14] MEDS: Ondansetron PF 4 MG/2 ML Vial IVP PRN (08:29)
--- NOTE | 2019-12-14 09:12 | RAD ---
PORTABLE CHEST 1 VIEW: DATE: 12/14/2019. TIME: 8:59 AM. HISTORY: Status post thoracotomy. FINDINGS/IMPRESSION: There has been interval removal of the right-sided chest tube. Opacification in the right chest is a gain noted. No definite pneumothorax is seen. POS: OFF
--- NOTE | 2019-12-14 11:45 | PRG ---
DATE OF SERVICE: 12/14/2019 SUBJECTIVE: This morning, she is better, less short of breath, less cough. X-ray still shows opacification in the right upper lung status post lobectomy. OBJECTIVE: VITAL SIGNS: Temperature 98, pulse 98, sats 95% on room air, respiratory rate 18, blood pressure 100/66. CHEST: Rhonchi, right greater than left. CARDIAC: Normal S1, S2. No gallops. ABDOMEN: No masses. ASSESSMENT: 1. Status post lobectomy, adenocarcinoma. 2. Persistent right opacification. PLAN: A medium dose albuterol inhaler 2 puffs 4 times a day is being ordered along with Levaquin 500 once a day for 5 days. She is to follow up with Dr. Baldwin, whom she has seen in the past. Job ID: [id number]
--- NOTE | 2019-12-14 13:33 | DIS ---
DATE OF ADMISSION: 12/08/2019 DATE OF DISCHARGE: 12/14/2019 HOSPITAL COURSE: This is a 54-year-old, referred by Dr. Baldwin for right upper lobe adenocarcinoma diagnosed with needle biopsy. She underwent a right upper lobectomy on the day of admission on 12/08/2019 with node dissection. Final pathology returned a 1.5 cm adenocarcinoma with negative lymph nodes. Postoperative course was relatively unremarkable with her chest tube having no significant air leak and being removed on 12/11. Her [employer] pump and epidural were subsequently removed and she was ambulating the halls without difficulty. She, on a daily basis, had the same statement for me, which was "so you did remove all of my cancer." I repeatedly explained to her that we removed her cancer from her upper lobe, but we will continue to monitor for recurrence or another primary. Unfortunately, due to her anxiety disorder underlying her lung cancer, I think this will continue to be an issue with her. She is on multiple multiple anxiety medicines and I have tried to decrease these to just a couple of them at discharge. She will also be discharged with some tramadol for pain. Discharge and followup instructions have been given and questions have been answered. Job ID: [id number]
--- NOTE | 2019-12-15 04:59 | PQF ---
CLINICAL DOCUMENTATION CLARIFICATION FORM: Dear : Smooth Ordaz Date / Time: 12/15/19 7573 Please exercise your independent, professional judgment in responding to the clarification form. Clinical indicators are provided on the bottom of this form for your review Please check appropriate box(es): [ ] Empirically treating Gram Negative Pneumonia [ ] Empirically treating Anaerobic Pneumonia [ ] Postoperative Pneumonia [ ] Simple Pneumonia [ ] Pneumonia of unknown etiology [ ] Other diagnosis [ ] Unable to determine In addition, please specify: Present on Admission (POA): [ ] Yes [ ] No [ ] Unable to determine Physician Signature: Date/Time: For continuity of documentation, please document condition throughout progress notes and discharge summary. Thank You. To be completed by CDI/Coding staff for physician review: Present Clinical Indicators - Signs / Symptoms / Labs Results and Location in Medical Record [X] BP 111/60, pulse 87, resp 20, O2 sat 96% Vital signs 12/07 [X] WBC 11.2, Plt count 201, Neutrophils 75.8 Laboratory Hematology [X] Chest X-ray Impression Right thorax with persistent opacification in the right apex Imaging Dr Larson 12/10 [X] Right upper lung atelectasis changes post upper lobe lobectomy Consult p2 12/08 Dr Head [X] Respiratory failure Consult p2 12/08 Dr Head [X] persistent right opacification PN p1 12/13 Dr Head [X] Chest:decrease breath sound. Bilateral rhonchi PN 12/10 [X] Chest: Crackles PN 12/11 Present Risk Factors Results and Location in Medical Record [X] Tobacco abuse Consult 12/08 Dr Head [X] HTN Consult 12/08 Dr Head [X] Anxiety Consult p1 12/08 Dr Head [X] DM Consult p1 12/08 Dr Head [X] COPD Consult p2 12/08 Dr Head [X] Lung Adenocarcinoma s/p lobectomy Consult p2 12/08 Dr Head [X] Atelectasis Consult p2 12/08 Dr Head Present Treatments Results and Location in Medical Record [X] Duoneb 3 ml neb JUL 28 [X] IV Clindamycin 900 mg JUL 28 [X] Dulera 200 mcg/5mcg inhaler JUL 28 [X] Oxygen 2L Respiratory Panel 12/08 [X] Respiratory Consult Consult Arnoldo Kong 12/08 [X] Chest X-ray Imaging Dr Larson 12/08 [X] ICU admits Consult p2 12/08 Dr Head [X] Continue aggressive neb treatment Consult p2 12/08 Dr Head CDS/Traffic Coordinator Signature: Ericka Fan Clarissa Phone #: ext [phone] Date/Time: 12/15/19 6447 This is a permanent part of the Medical Record [facility]
--- NOTE | 2019-12-15 05:01 | PQF ---
CLINICAL DOCUMENTATION CLARIFICATION FORM: Dear : Smooth Ordaz Date / Time: 12/15/19 0500 Please exercise your independent, professional judgment in responding to the clarification form. Clinical indicators are provided on the bottom of this form for your review Please check appropriate box(es) to clarify if the following diagnosis has been ruled in our ruled out: Respiratory Failure [ ] Ruled in diagnosis If Respiratory Failure is Ruled in can you please specify acuity if: [ ] Acute [ ] Chronic [ ] Acute on Chronic [ ] Ruled out diagnosis [ ] Improving [ ] Cannot rule out diagnosis [ ] Other diagnosis [ ] Unable to determine Physician Signature: Date/Time: For continuity of documentation, please document condition throughout progress notes and discharge summary. Thank You. To be completed by CDI/Coding staff for physician review: Present Clinical Indicators - Signs / Symptoms / Labs Results and Location in Medical Record [X] BP 111/60, pulse 87, resp 20, O2 sat 96% Vital signs 12/07 [X] Right upper lung atelectasis changes post upper lobe lobectomy Consult p2 12/08 Dr Head [X] Respiratory failure Consult p2 12/08 Dr Head [X] persistent right opacification PN p1 12/13 Dr Head [X] Chest:decrease breath sound. Bilateral rhonchi PN 12/10 [X] Chest: Crackles PN 12/11 Present Risk Factors Results and Location in Medical Record [X] Tobacco abuse Consult p1 12/08 Dr Head [X] HTN Consult p1 12/08 Dr Head [X] Anxiety Consult p1 12/08 Dr Head [X] DM Consult p1 12/08 Dr Head [X] COPD Consult p2 12/08 Dr Head [X] Lung Adenocarcinoma s/p lobectomy Consult p2 12/08 Dr Head [X] Atelectasis Consult p2 12/08 Dr Head Present Treatments Results and Location in Medical Record [X] Duoneb 3 ml neb MAR 12/08 [X] Dulera 200 mcg/5mcg inhaler JUL 28 [X] Oxygen 2L Respiratory Panel 12/08 [X] Respiratory Consult Consult Arnoldo Kong 12/08 [X] Chest X-ray Imaging Dr Larson 12/08 [X] ICU admits Consult 12/08 Dr Head [X] Continue aggressive neb treatment Consult 12/08 Dr Head CDS/Cnc Mill Operator Signature: Ericka Romo Phone #: ext [phone] Date/Time: 12/15/19 0500 This is a permanent part of the Medical Record [facility]
== END 2019-12-14 12:45 | disposition home or self-care (01) | DRG 164 ==
LOC: SURG A 12-08 06:08 → CCU 12-08 12:32 → SURG A 12-10 14:35
PROVIDERS: ADMIT Thoracic Surgery (Cardiothoracic Vascular Surgery); ATTEND Thoracic Surgery (Cardiothoracic Vascular Surgery)
PROC: 0BBC0ZZ Excision of Right Upper Lung Lobe, Open Approach (ICD-10-PCS; principal; 2019-12-08)
PROC: 07B70ZZ Excision of Thorax Lymphatic, Open Approach (ICD-10-PCS; 2019-12-08)
DX: C34.11 Malignant neoplasm of upper lobe, right bronchus or lung (principal); J98.11 Atelectasis; F41.9 Anxiety disorder, unspecified; G43.909 Migraine, unspecified, not intractable, without status migrainosus; F31.9 Bipolar disorder, unspecified; I10 Essential (primary) hypertension; E11.9 Type 2 diabetes mellitus without complications; K21.9 Gastro-esophageal reflux disease without esophagitis; F90.9 Attention-deficit hyperactivity disorder, unspecified type; J44.9 Chronic obstructive pulmonary disease, unspecified; F17.200 Nicotine dependence, unspecified, uncomplicated; Z90.710 Acquired absence of both cervix and uterus; Z79.899 Other long term (current) drug therapy; Z79.84 Long term (current) use of oral hypoglycemic drugs; Z88.0 Allergy status to penicillin
CPT/HCPCS: 36415; 36416; 71045; 71046; 80048; 85025; 88307; 88309; 88313; 88331; 94640; J1100; J1200; J1642; J1650; J1815; J1885; J1956; J2001; J2250; J2270; J2405; J2704; J2795; J3010; J3490; J7070; J7620; Q0163

== ENCOUNTER 2019-12-28 14:06 | Outpatient (CLI) | payer MEDICARE, MEDICAID ==
--- NOTE | 2019-12-28 15:32 | RAD ---
EXAM: Chest 2 views: HISTORY: Malignant neoplasm of the upper lobe of the lung COMPARISON: 12/13/2019 FINDINGS: There is a normal-sized cardiomediastinal silhouette. Opacity is again seen in the right apex. Surgic al clips are seen in the right hilar region. Postsurgical changes are seen in the cervical spine. IMPRESSION: Right upper lobe opacity may represent atelectasis and postsurgical change and is stable.
== END 2019-12-28 14:07 | disposition home or self-care (01) ==
LOC: BICRAD 14:06
PROVIDERS: ATTEND Thoracic Surgery (Cardiothoracic Vascular Surgery)
DX: C34.10 Malignant neoplasm of upper lobe, unspecified bronchus or lung (principal); R91.8 Other nonspecific abnormal finding of lung field; Z98.890 Other specified postprocedural states
CPT/HCPCS: 71046

== ENCOUNTER 2020-04-03 11:25 | Outpatient (CLI) | payer MEDICARE, MEDICAID ==
--- NOTE | 2020-04-03 12:37 | RAD ---
XR Chest Pa Lat STANDARD History: Malignant neoplasm of upper lobe Comparison: Radiograph December 28, 2019 Findings: Mild hyperexpansion of the right middle lobe with small residual fluid collection of the ri ght lung apex. This is decreased in size. No new suspicious pulmonary nodule. No adenopathy. Impression: Satisfactory postoperative appearance with continued hyperexpansion right middle lobe. No suspicious pulmonary nodule.
== END 2020-04-03 11:26 | disposition home or self-care (01) ==
LOC: BICRAD 11:25
PROVIDERS: ATTEND Thoracic Surgery (Cardiothoracic Vascular Surgery)
DX: C34.10 Malignant neoplasm of upper lobe, unspecified bronchus or lung (principal); J98.4 Other disorders of lung; Z98.890 Other specified postprocedural states
CPT/HCPCS: 71046

== ENCOUNTER 2020-07-15 10:38 | Outpatient (CLI) | payer MEDICARE, MEDICAID ==
--- NOTE | 2020-07-15 11:15 | RAD ---
EXAM: Chest PA and lateral: HISTORY: No lytic neoplasm of the right upper lobe. COMPARISON: 04/03/2020 FINDINGS: Postoperative changes: Stable cervical fusion hardware. There is a suture chain projecting over the r ight in the thorax, unchanged. Heart: Normal cardiac silhouette Aorta: Unremarkable Pulmonary vessels: Normal Costophrenic angles: Costophrenic angles are clear. Lungs: No consolidation or masses. Pneumothorax: No pneumothorax Osseous structures: No osseous abnormalities IMPRESSION: No acute cardiopulmonary process.
== END 2020-07-15 10:39 | disposition home or self-care (01) ==
LOC: BICRAD 10:38
PROVIDERS: ATTEND Thoracic Surgery (Cardiothoracic Vascular Surgery)
DX: C34.10 Malignant neoplasm of upper lobe, unspecified bronchus or lung (principal)
CPT/HCPCS: 71046

== ENCOUNTER 2020-09-05 08:12 | Outpatient (CLI) | payer MEDICARE, MEDICAID ==
[2020-09-05] MEDS ORDERED: Iopamidol 370 76% 100 ML VIAL ONE (12:57)
== END 2020-09-05 08:13 | disposition home or self-care (01) ==
LOC: BICCT 08:12
PROVIDERS: ATTEND Physician Assistant Medical
DX: R94.5 Abnormal results of liver function studies (principal); K76.9 Liver disease, unspecified; E27.8 Other specified disorders of adrenal gland
CPT/HCPCS: 74170; Q9967

== ENCOUNTER 2020-10-02 10:40 | Outpatient (CLI) | payer MEDICARE, MEDICAID | END 2020-10-02 10:41 | disposition home or self-care (01) | LOC: BICRAD 10:40 | PROVIDERS: ATTEND Physician Assistant Medical | DX: R05 Cough (principal); R61 Generalized hyperhidrosis; R32 Unspecified urinary incontinence; R94.5 Abnormal results of liver function studies | CPT/HCPCS: 71046 ==

== ENCOUNTER 2020-11-19 10:45 | Outpatient (CLI) | payer MEDICARE, MEDICAID | END 2020-11-19 10:46 | disposition home or self-care (01) | LOC: BICRAD 10:45 | PROVIDERS: ATTEND Internal Medicine Critical Care Medicine | DX: R06.00 Dyspnea, unspecified (principal); Z98.890 Other specified postprocedural states | CPT/HCPCS: 71046 ==

== ENCOUNTER 2021-04-07 09:03 | Outpatient (CLI) | payer MEDICARE, MEDICAID ==
[2021-04-07] MEDS ORDERED: Iopamidol-370 76% 500 ML 1 ML ONE (10:26)
== END 2021-04-07 09:04 | disposition home or self-care (01) ==
LOC: BICCT 09:03
PROVIDERS: ATTEND Internal Medicine Critical Care Medicine
DX: C34.90 Malignant neoplasm of unspecified part of unspecified bronchus or lung (principal); E27.8 Other specified disorders of adrenal gland; K76.9 Liver disease, unspecified; Z98.890 Other specified postprocedural states
CPT/HCPCS: 71260

== ENCOUNTER 2021-04-30 08:18 | Outpatient (CLI) | payer MEDICARE, MEDICAID | END 2021-04-30 08:19 | disposition home or self-care (01) | LOC: BICRAD 08:18 | PROVIDERS: ATTEND Obstetrics & Gynecology | DX: M25.522 Pain in left elbow (principal); R07.81 Pleurodynia ==

== ENCOUNTER 2022-04-07 09:25 | Outpatient (CLI) | payer OTHER | END 2022-04-07 09:26 | disposition home or self-care (01) | LOC: BICCT 09:25 | PROVIDERS: ATTEND Internal Medicine Critical Care Medicine | DX: C34.91 Malignant neoplasm of unspecified part of right bronchus or lung (principal); E27.8 Other specified disorders of adrenal gland; Z90.2 Acquired absence of lung [part of] | CPT/HCPCS: 71250 ==

== ENCOUNTER 2022-06-11 09:41 | Outpatient (CLI) | payer OTHER | END 2022-06-11 09:42 | disposition home or self-care (01) | LOC: BICRAD 09:41 | PROVIDERS: ATTEND Obstetrics & Gynecology | DX: R05.2 Subacute cough (principal) | CPT/HCPCS: 71046 ==

== ENCOUNTER 2023-01-01 12:40 | Outpatient (CLI) | payer OTHER | END 2023-01-01 12:41 | disposition home or self-care (01) | LOC: BICMAMMO 12:40 | PROVIDERS: ATTEND General Practice | DX: Z12.31 Encounter for screening mammogram for malignant neoplasm of breast (principal) | CPT/HCPCS: 77063; 77067 ==

== ENCOUNTER 2023-01-27 13:36 | Outpatient (CLI) | payer OTHER | END 2023-01-27 13:37 | disposition home or self-care (01) | LOC: RAD 13:36 | PROVIDERS: ATTEND Thoracic Surgery (Cardiothoracic Vascular Surgery) | DX: C34.10 Malignant neoplasm of upper lobe, unspecified bronchus or lung (principal) | CPT/HCPCS: 71046 ==

== ENCOUNTER 2023-04-19 13:19 | Outpatient (CLI) | payer OTHER, MEDICAID | END 2023-04-19 13:20 | disposition home or self-care (01) | LOC: BICCT 13:19 → CT 13:20 | PROVIDERS: ATTEND Internal Medicine Critical Care Medicine | DX: R91.8 Other nonspecific abnormal finding of lung field (principal); D35.02 Benign neoplasm of left adrenal gland | CPT/HCPCS: 71250 ==

== ENCOUNTER 2024-03-20 12:19 | Outpatient (CLI) | payer OTHER, MEDICAID | END 2024-03-20 12:20 | disposition home or self-care (01) | LOC: RAD 12:19 | PROVIDERS: ATTEND Student in an Organized Health Care Education/Training Program | DX: C34.10 Malignant neoplasm of upper lobe, unspecified bronchus or lung (principal); Z90.2 Acquired absence of lung [part of] | CPT/HCPCS: 71046 ==

== ENCOUNTER 2024-05-01 12:17 | Outpatient (CLI) | payer OTHER, MEDICAID | END 2024-05-01 12:18 | disposition home or self-care (01) | LOC: BICCT 12:17 | PROVIDERS: ATTEND Internal Medicine Critical Care Medicine | DX: R91.8 Other nonspecific abnormal finding of lung field (principal); R91.1 Solitary pulmonary nodule; Z98.890 Other specified postprocedural states | CPT/HCPCS: 71250 ==